=== PATIENT | male | born 1955 | race African-American/Black ===

== ENCOUNTER 2019-01-07 15:52 | Inpatient (IN) ==
[2019-01-07] MEDS ORDERED: SODIUM CHLORIDE 0.9% 1,000 ML IV STA ×2 (16:46→17:52)
[2019-01-07 17:04] LABS: Basophils % 0.3 % (0.0-0.8); Eosinophils % 0.1 % (0.00-10.9); Hematocrit 37.9 VOL% (42.0-52.0); Hemoglobin 12.4 GM/DL (14.0-18.0); Immature Granulocytes % 0.6 %; Immature Granulocytes Absolute 0.08 #; Mean Corpuscular HGB Conc 32.7 GM/DL (32-36); Mean Corpuscular Volume 87.1 FL (87-102); Mean Platelet Volume 10.2 FL (9.6-12.0); Monocytes % 7.5 % (1.7-12.7); Neutrophils % 84.5 % (38.7-73.9); Platelet Count 250 T/CUMM (130-400); Red Blood Count 4.35 MC/CUMM (3.8-5.5); Red Cell Distribution Width 13.6 % (9.3-17.3); White Blood Count 13.7 T/CUMM (4-12)
[2019-01-07 17:14] LABS: INR 0.9; Partial Thromboplastin Time 23.9 SECS (0-40)
[2019-01-07 17:33] LABS: Prolactin 5.1 NG/ML
[2019-01-07 17:34] LABS: Alanine Aminotransferase 33 U/L (16-61); Albumin 2.6 G/DL (3.4-5.0); Alkaline Phosphatase 63 U/L (45-117); Aspartate Amino Transferase 71 U/L (0-37); Bilirubin,Total < 0.39 MG/DL (0.2-1.0); Blood Urea Nitrogen 22 MG/DL (7-18); Calcium 8.8 MG/DL (8.5-10.1); Free T4 (Free Thyroxine) 1.17 NG/DL (0.76-1.46); Glucose 124 MG/DL (74-106); Osmolality,Calculated 282.4 MOS/KG (273-304); Thyroid Stimulating Hormone 0.973 uIU/ml (0.358-3.74); Total Protein 7.1 G/DL (6.4-8.3)
[2019-01-07] MEDS ORDERED: AZITHROMYCIN INJ 500 MG in SODIUM CHLORIDE 0.9% 250 ML IV STA (17:52)
[2019-01-07] MEDS ORDERED: cefTRIAXone 1,000 MG in SODIUM CHLORIDE 0.9% 100 ML IV STA (17:52)
[2019-01-07] MEDS ORDERED: ALBUTEROL/IPRATROPIUM 3 ML NEB RESP TX STA (17:54)
[2019-01-07] MEDS ORDERED: methylPREDNISolone SOD SUC 125 MG/2 ML VIAL IV STA (17:54)
[2019-01-07 18:21] LABS: Apearance,Urine Slightly Hazy (Clear); Bilirubin,Urine Negative (Negative); Blood, Urine Large mg/dL (Negative); Glucose,Urine (UA) 50 mg/dL (Negative); Hyaline Casts,Urine 10 /LPF (0-3); Ketones,Urine Negative (Negative); Mucus,Urine Occasional /LPF (Occasional); Nitrite,Urine Negative (Negative); Protein,Urine >=500 MG/DL; RBC,Urine 312 /HPF (0-4); Squamous Epithelial Cell,Urine Occasional /HPF (0-10); Urine Color Yellow (Yellow); Urine Specific Gravity 1.012 (1.001-1.035); Urine Urobilinogen < 2.0 EU/DL (0.2-1.0); WBC,Urine 7 /HPF (0-6)
[2019-01-07 18:31] LABS: Barbiturates Screen,Urine Negative (Negative); Benzodiazepines Screen,Urine Negative (Negative); Cannabinoid Screen,Urine Negative (Negative); Opiate Screen,Urine Positive (Negative); Phencyclidine Screen,Urine Negative (Negative)
[2019-01-07] MEDS ORDERED: ACETAMINOPHEN 325 MG TABLET PO PRN (19:44)
[2019-01-07] MEDS ORDERED: BISACODYL 5 MG TABLET PO PRN (19:44)
[2019-01-07] MEDS ORDERED: NICOTINE 21 MG/24 HR PATCH TRANSDERM PRN (19:44)
[2019-01-07] MEDS ORDERED: DEXTROSE 50% 25 GM/50 ML VIAL IV PRN (19:44)
[2019-01-07] MEDS ORDERED: GLUCAGON 1 MG VIAL IM PRN (19:44)
[2019-01-07] MEDS ORDERED: MORPHINE 4 MG/1 ML VIAL IV PRN (19:44)
[2019-01-07] MEDS ORDERED: diphenhydrAMINE CAP 25 MG CAPSULE PO PRN (19:44)
[2019-01-07] MEDS ORDERED: guaiFENesin/DM ER 600-30 MG TABLET PO PRN (19:44)
[2019-01-07] MEDS ORDERED: PROMETHAZINE 25 MG/1 ML VIAL IM PRN (19:44)
[2019-01-07] MEDS ORDERED: ONDANSETRON 4 MG/2 ML VIAL IV PRN (19:44)
[2019-01-07] MEDS: SODIUM CHLORIDE 0.9% 1,000 ML IV SCH (21:25)
[2019-01-07] MEDS: INSULIN REGULAR 100 UNIT/ML SUBCUT SCH (21:25)
[2019-01-07] MEDS ORDERED: FUROSEMIDE 20 MG TABLET PO SCH (23:58)
[2019-01-08] MEDS: PREGABALIN 75 MG CAPSULE PO SCH ×2 (00:21→09:26)
[2019-01-08] MEDS: GABAPENTIN 600 MG TABLET PO SCH ×3 (00:21→22:25)
[2019-01-08 05:24] LABS: Basophils % 0.1 % (0.0-0.8); Hematocrit 38.2 VOL% (42.0-52.0); Hemoglobin 12.5 GM/DL (14.0-18.0); Immature Granulocytes % 0.5 %; Immature Granulocytes Absolute 0.07 #; Lymphocytes # 1.1 10*3/uL (1.4-4.0); Lymphocytes % 7.9 % (21.2-54.2); Mean Corpuscular HGB Conc 32.7 GM/DL (32-36); Mean Corpuscular Volume 86.6 FL (87-102); Mean Platelet Volume 10.8 FL (9.6-12.0); Monocytes % 0.7 % (1.7-12.7); Neutrophils % 90.8 % (38.7-73.9); Platelet Count 240 T/CUMM (130-400); Red Blood Count 4.41 MC/CUMM (3.8-5.5); Red Cell Distribution Width 13.7 % (9.3-17.3); White Blood Count 14.2 T/CUMM (4-12)
[2019-01-08 05:49] LABS: Alanine Aminotransferase 48 U/L (16-61); Albumin 2.4 G/DL (3.4-5.0); Alkaline Phosphatase 67 U/L (45-117); Aspartate Amino Transferase 146 U/L (0-37); Bilirubin,Total < 0.39 MG/DL (0.2-1.0); Blood Urea Nitrogen 23 MG/DL (7-18); Calcium 8.6 MG/DL (8.5-10.1); Glucose 453 MG/DL (74-106); Osmolality,Calculated 300.5 MOS/KG (273-304); Total Protein 6.9 G/DL (6.4-8.3)
[2019-01-08 06:09] LABS: Lymphocytes 6 % (20-55); Segmented Neutrophils 94 % (50-85); Total Cells Counted 100
[2019-01-08 06:11] LABS: Hypochromasia 1+; Platelet Estimate Normal
[2019-01-08] MEDS ORDERED: SODIUM CHLORIDE 0.9% 500 ML IV ONE (07:38)
[2019-01-08] MEDS ORDERED: INSULIN REGULAR 100 UNIT/ML IV ONE ×2 (07:38→12:16)
[2019-01-08 08:02] LABS: Risk Ratio 2.34; VLDL CHOLESTEROL 8.6 MG/DL
[2019-01-08] MEDS ORDERED: cefTRIAXone 1,000 MG in SYRINGE 1 EACH IV SCH (09:00)
[2019-01-08] MEDS: INSULIN REGULAR 100 UNIT/ML SUBCUT SCH ×5 (09:26→20:14)
[2019-01-08] MEDS: amLODIPine 10 MG TABLET PO SCH (09:42)
[2019-01-08] MEDS: PANTOPRAZOLE 40 MG TABLET PO SCH (09:42)
[2019-01-08] MEDS: HEPARIN 5,000 UNIT/1 ML VIAL SUBCUT SCH ×2 (09:43→17:58)
[2019-01-08] MEDS: SODIUM CHLORIDE 0.9% 1,000 ML IV SCH ×2 (09:44→17:58)
[2019-01-08] MEDS: PIPERACILLIN/TAZOBACTAM 3,375 MG in SODIUM CHLORIDE 0.9% 100 ML IV SCH ×2 (09:44→17:59)
[2019-01-08 10:54] LABS: CKMB % 0.6 %
[2019-01-08] MEDS ORDERED: POTASSIUM CHLORIDE RIDER 10 MEQ in PREMIX 1 EACH IV PRN (12:17)
[2019-01-08 13:08] LABS: Protein/Creatinine Ratio,Urine 5.9 RATIO
[2019-01-08] MEDS: ALBUTEROL/IPRATROPIUM 3 ML NEB RESP TX SCH ×2 (15:34→18:48)
[2019-01-08] MEDS: INSULIN ASPART PROTAMINE/ASPART 70/30 100 UNIT/ML SUBCUT SCH (17:58)
[2019-01-08] MEDS ORDERED: AZITHROMYCIN INJ 500 MG in SODIUM CHLORIDE 0.9% 250 ML IV SCH (18:00)
[2019-01-09] MEDS: PIPERACILLIN/TAZOBACTAM 3,375 MG in SODIUM CHLORIDE 0.9% 100 ML IV SCH ×3 (00:44→16:39)
[2019-01-09] MEDS: INSULIN REGULAR 100 UNIT/ML SUBCUT SCH ×4 (00:44→17:57)
[2019-01-09] MEDS: HEPARIN 5,000 UNIT/1 ML VIAL SUBCUT SCH ×3 (01:40→16:39)
[2019-01-09] MEDS: SODIUM CHLORIDE 0.9% 1,000 ML IV SCH ×5 (01:41→22:27)
[2019-01-09] MEDS: LEVALBUTEROL 0.63 MG/3 ML NEB RESP TX SCH ×4 (02:00→18:30)
[2019-01-09 05:34] LABS: Basophils % 0.3 % (0.0-0.8); Eosinophils # 0.1 10*3/uL (0.0-0.87); Eosinophils % 0.5 % (0.00-10.9); Hematocrit 34.6 VOL% (42.0-52.0); Hemoglobin 11.4 GM/DL (14.0-18.0); Immature Granulocytes % 0.3 %; Immature Granulocytes Absolute 0.04 #; Lymphocytes % 25.8 % (21.2-54.2); Mean Corpuscular HGB Conc 32.9 GM/DL (32-36); Mean Corpuscular Volume 86.5 FL (87-102); Mean Platelet Volume 10.2 FL (9.6-12.0); Monocytes % 5.1 % (1.7-12.7); Platelet Count 213 T/CUMM (130-400); Red Cell Distribution Width 13.8 % (9.3-17.3); White Blood Count 11.7 T/CUMM (4-12)
[2019-01-09 06:12] LABS: Bilirubin,Total 0.4 MG/DL (0.2-1.0); CKMB % 0.4 %; Calcium 8.1 MG/DL (8.5-10.1); Osmolality,Calculated 288.7 MOS/KG (273-304); Total Protein 6.1 G/DL (6.4-8.3)
[2019-01-09] MEDS: amLODIPine 10 MG TABLET PO SCH (08:50)
[2019-01-09] MEDS: GABAPENTIN 600 MG TABLET PO SCH ×2 (08:50→22:29)
[2019-01-09] MEDS: PANTOPRAZOLE 40 MG TABLET PO SCH (08:51)
[2019-01-09] MEDS: POTASSIUM CHLORIDE 20 MEQ TABLET PO PRN ×4 (08:51→22:29)
[2019-01-09] MEDS: INSULIN ASPART PROTAMINE/ASPART 70/30 100 UNIT/ML SUBCUT SCH ×2 (08:52→16:39)
[2019-01-09 10:08] LABS: Random Urine Protein (Bench) 164 MG/DL (<11.9)
[2019-01-09] MEDS: LOSARTAN/HCTZ 50-12.5 MG TABLET PO SCH (16:38)
[2019-01-09] MEDS: CARBIDOPA/LEVODOPA 25-100 MG TABLET PO SCH (22:29)
[2019-01-10] MEDS: LEVALBUTEROL 0.63 MG/3 ML NEB RESP TX SCH ×2 (00:20→07:46)
[2019-01-10] MEDS: INSULIN REGULAR 100 UNIT/ML SUBCUT SCH ×3 (01:09→12:33)
[2019-01-10] MEDS: PIPERACILLIN/TAZOBACTAM 3,375 MG in SODIUM CHLORIDE 0.9% 100 ML IV SCH ×2 (01:10→09:05)
[2019-01-10] MEDS: HEPARIN 5,000 UNIT/1 ML VIAL SUBCUT SCH ×2 (01:11→09:06)
[2019-01-10] MEDS ORDERED: hydrALAZINE 20 MG/1 ML VIAL IV PRN (01:17)
[2019-01-10 05:27] LABS: Basophils % 0.3 % (0.0-0.8); Eosinophils # 0.2 10*3/uL (0.0-0.87); Eosinophils % 1.7 % (0.00-10.9); Hematocrit 35.3 VOL% (42.0-52.0); Hemoglobin 11.7 GM/DL (14.0-18.0); Immature Granulocytes % 0.2 %; Immature Granulocytes Absolute 0.02 #; Lymphocytes # 2.8 10*3/uL (1.4-4.0); Lymphocytes % 32.3 % (21.2-54.2); Mean Corpuscular HGB Conc 33.1 GM/DL (32-36); Mean Corpuscular Volume 86.5 FL (87-102); Mean Platelet Volume 11.1 FL (9.6-12.0); Monocytes % 4.9 % (1.7-12.7); Neutrophils % 60.6 % (38.7-73.9); Platelet Count 208 T/CUMM (130-400); Red Blood Count 4.08 MC/CUMM (3.8-5.5); Red Cell Distribution Width 13.8 % (9.3-17.3); White Blood Count 8.7 T/CUMM (4-12)
[2019-01-10 05:43] LABS: Calcium 8.3 MG/DL (8.5-10.1); Osmolality,Calculated 288.1 MOS/KG (273-304)
[2019-01-10] MEDS: SODIUM CHLORIDE 0.9% 1,000 ML IV SCH ×3 (06:22→15:43)
[2019-01-10] MEDS: CARBIDOPA/LEVODOPA 25-100 MG TABLET PO SCH (09:00)
[2019-01-10] MEDS: PANTOPRAZOLE 40 MG TABLET PO SCH (09:00)
[2019-01-10] MEDS: LOSARTAN/HCTZ 50-12.5 MG TABLET PO SCH (09:00)
[2019-01-10] MEDS: GABAPENTIN 600 MG TABLET PO SCH (09:01)
[2019-01-10] MEDS: amLODIPine 10 MG TABLET PO SCH (09:01)
[2019-01-10] MEDS: INSULIN ASPART PROTAMINE/ASPART 70/30 100 UNIT/ML SUBCUT SCH (09:04)
[2019-01-10] MEDS ORDERED: CARVEDILOL 25 MG TABLET PO SCH (11:32)
[2019-01-10 12:51] VITALS: BP 151/89
== END 2019-01-10 16:00 | disposition home or self-care (01) | DRG 137 ==
LOC: EDUNIT# → EDBD → N.ED 15:52 → N.EDINP 19:44 → N.5E 20:05
PROVIDERS: ADMIT Internal Medicine; ATTEND Internal Medicine

== ENCOUNTER 2019-07-18 12:55 | Inpatient (IN) ==
[2019-07-18] MEDS ORDERED: SODIUM CHLORIDE 0.9% 500 ML IV STA (13:26)
[2019-07-18 14:02] LABS: Basophils % 0.4 % (0.0-0.8); Hematocrit 36.2 VOL% (42.0-52.0); Hemoglobin 12.1 GM/DL (14.0-18.0); Immature Granulocytes % 0.3 %; Immature Granulocytes Absolute 0.02 #; Lymphocytes # 1.4 10*3/uL (1.4-4.0); Lymphocytes % 19.1 % (21.2-54.2); Mean Corpuscular HGB Conc 33.4 GM/DL (32-36); Mean Corpuscular Volume 85.8 FL (87-102); Mean Platelet Volume 9.9 FL (9.6-12.0); Neutrophils % 72.2 % (38.7-73.9); Platelet Count 202 T/CUMM (130-400); Red Blood Count 4.22 MC/CUMM (3.8-5.5); Red Cell Distribution Width 13.3 % (9.3-17.3); White Blood Count 7.2 T/CUMM (4-12)
[2019-07-18 14:16] LABS: Apearance,Urine CLEAR (Clear); Bacteria,Urine Occasional /HPF (Few); Bilirubin,Urine Negative (Negative); Blood, Urine Moderate mg/dL (Negative); Glucose,Urine (UA) 50 mg/dL (Negative); Hyaline Casts,Urine 1 /LPF (0-3); Ketones,Urine Negative (Negative); Mucus,Urine Occasional /LPF (Occasional); Nitrite,Urine Negative (Negative); Protein,Urine 100 MG/DL; RBC,Urine 8 /HPF (0-4); Squamous Epithelial Cell,Urine Occasional /HPF (0-10); Urine Color Yellow (Yellow); Urine Specific Gravity 1.016 (1.001-1.035); Urine Urobilinogen < 2.0 EU/DL (0.2-1.0); WBC,Urine 29 /HPF (0-6)
[2019-07-18 14:23] LABS: Alanine Aminotransferase 25 U/L (16-61); Albumin 2.3 G/DL (3.4-5.0); Alkaline Phosphatase 55 U/L (45-117); Aspartate Amino Transferase 34 U/L (0-37); Bilirubin,Total < 0.39 MG/DL (0.2-1.0); Blood Urea Nitrogen 20 MG/DL (7-18); Calcium 8.3 MG/DL (8.5-10.1); Estimated Glom Filtration Rate 58 ML/MIN; Glucose 108 MG/DL (74-106); Osmolality,Calculated 276.8 MOS/KG (273-304); Total Protein 6.7 G/DL (6.4-8.3)
[2019-07-18] MEDS ORDERED: cloNIDine 0.1 MG TABLET ONE (14:24)
[2019-07-18] MEDS ORDERED: cloNIDine 0.1 MG TABLET PO STA (14:26)
[2019-07-18] MEDS ORDERED: cefTRIAXone 1,000 MG in SODIUM CHLORIDE 0.9% 100 ML IV STA (15:04)
[2019-07-18] MEDS ORDERED: cefTRIAXone 1,000 MG in SYRINGE 1 EACH IV STA (15:07)
[2019-07-18] MEDS ORDERED: SODIUM CHLORIDE 0.9% 100 ML IV ONE (15:17)
[2019-07-18] MEDS ORDERED: ONDANSETRON 4 MG/2 ML VIAL IV PRN (16:14)
[2019-07-18] MEDS ORDERED: ACETAMINOPHEN 325 MG TABLET PO PRN (16:14)
[2019-07-18] MEDS ORDERED: diphenhydrAMINE CAP 25 MG CAPSULE PO PRN (16:14)
[2019-07-18] MEDS ORDERED: guaiFENesin/DM ER 600-30 MG TABLET PO PRN (16:14)
[2019-07-18] MEDS ORDERED: LACTULOSE 20 GM/30 ML UDCUP PO PRN (16:14)
[2019-07-18] MEDS ORDERED: GLUCAGON 1 MG VIAL IM PRN (16:14)
[2019-07-18] MEDS ORDERED: traZODone 50 MG TABLET PO PRN (16:14)
[2019-07-18] MEDS ORDERED: ZALEPLON 5 MG CAPSULE PO PRN (16:14)
[2019-07-18] MEDS ORDERED: DEXTROSE 50% 25 GM/50 ML VIAL IV PRN (16:14)
[2019-07-18] MEDS ORDERED: POTASSIUM CHLORIDE RIDER 10 MEQ in PREMIX 1 EACH IV PRN (16:17)
[2019-07-18] MEDS ORDERED: MAGNESIUM SULF RIDER 2 GM in PREMIX 1 EACH IV PRN (16:17)
[2019-07-18] MEDS ORDERED: MAGNESIUM SULF RIDER 4 GM in PREMIX 1 EACH IV PRN (16:17)
[2019-07-18] MEDS ORDERED: hydrALAZINE 20 MG/1 ML VIAL IV STA (16:24)
[2019-07-18] MEDS ORDERED: hydrALAZINE 20 MG/1 ML VIAL IV PRN (16:25)
[2019-07-18] MEDS: INSULIN REGULAR 100 UNIT/ML SUBCUT SCH ×2 (17:40→21:28)
[2019-07-18] MEDS: HEPARIN 5,000 UNIT/1 ML VIAL SUBCUT SCH (17:42)
[2019-07-18] MEDS: PIPERACILLIN/TAZOBACTAM 3,375 MG in SODIUM CHLORIDE 0.9% 100 ML IV SCH (17:43)
[2019-07-18] MEDS: SODIUM CHLORIDE 0.9% 1,000 ML IV SCH (17:43)
[2019-07-18] MEDS ORDERED: INSULIN ASPART PROTAMINE/ASPART 70/30 100 UNIT/ML SUBCUT SCH (21:00)
[2019-07-18] MEDS: GABAPENTIN 600 MG TABLET PO SCH (21:06)
[2019-07-18] MEDS: BACLOFEN 10 MG TABLET PO SCH (21:06)
[2019-07-19] MEDS: HEPARIN 5,000 UNIT/1 ML VIAL SUBCUT SCH ×3 (00:51→17:13)
[2019-07-19] MEDS: PIPERACILLIN/TAZOBACTAM 3,375 MG in SODIUM CHLORIDE 0.9% 100 ML IV SCH ×2 (00:51→08:38)
[2019-07-19 06:00] LABS: Basophils % 0.4 % (0.0-0.8); Eosinophils % 0.3 % (0.00-10.9); Hematocrit 32.7 VOL% (42.0-52.0); Immature Granulocytes % 0.1 %; Immature Granulocytes Absolute 0.01 #; Lymphocytes # 2.5 10*3/uL (1.4-4.0); Mean Corpuscular HGB Conc 33.6 GM/DL (32-36); Mean Corpuscular Volume 85.6 FL (87-102); Mean Platelet Volume 10.4 FL (9.6-12.0); Monocytes % 9.6 % (1.7-12.7); Neutrophils % 52.6 % (38.7-73.9); Platelet Count 197 T/CUMM (130-400); Red Blood Count 3.82 MC/CUMM (3.8-5.5); Red Cell Distribution Width 13.1 % (9.3-17.3); White Blood Count 6.8 T/CUMM (4-12)
[2019-07-19 06:24] LABS: Albumin 1.8 G/DL (3.4-5.0); Bilirubin,Total 1.1 MG/DL (0.2-1.0); Calcium 8.2 MG/DL (8.5-10.1); Osmolality,Calculated 286.4 MOS/KG (273-304); Risk Ratio 2.96; Total Protein 5.9 G/DL (6.4-8.3)
[2019-07-19 06:33] LABS: Hypochromasia 1+; Microcytosis Slight; Ovalocytes Slight
[2019-07-19 06:34] LABS: Platelet Estimate Adequate
[2019-07-19 07:43] LABS: Hepatitis B Core IgM Quant 0.07 Index; Hepatitis B Surface Ag Quant < 0.10 Index; Hepatitis B Surface Ag Result Negative (Negative); Hepatitis C Virus Ab Quant > 11.00 Index; Hepatitis C Virus Ab Result Positive (Negative)
[2019-07-19] MEDS: INSULIN REGULAR 100 UNIT/ML SUBCUT SCH ×4 (08:36→20:35)
[2019-07-19] MEDS: GABAPENTIN 600 MG TABLET PO SCH ×2 (08:37→20:26)
[2019-07-19] MEDS: BACLOFEN 10 MG TABLET PO SCH ×2 (08:37→20:26)
[2019-07-19] MEDS: BISACODYL 5 MG TABLET PO SCH (08:37)
[2019-07-19] MEDS: INSULIN ASPART PROTAMINE/ASPART 70/30 100 UNIT/ML SUBCUT SCH ×2 (08:48→17:12)
[2019-07-19] MEDS ORDERED: POTASSIUM CHLORIDE INJ 50 MEQ in SODIUM CHLORIDE 0.9% 500 ML IV ONE (10:30)
[2019-07-19 14:07] LABS: HIV Antigen/Antibody Result Nonreactive (Nonreactive)
[2019-07-19] MEDS ORDERED: BICILLIN CR 1,200,000 UNIT/2 ML SYRINGE IM ONE (16:00)
[2019-07-19] MEDS: CARBIDOPA/LEVODOPA 25-100 MG TABLET PO SCH (20:26)
[2019-07-19] MEDS ORDERED: PENICILLIN VK 500 MG TABLET PO SCH (21:00)
[2019-07-19] MEDS: SODIUM CHLORIDE 0.9% 1,000 ML IV SCH (22:42)
[2019-07-20] MEDS: HEPARIN 5,000 UNIT/1 ML VIAL SUBCUT SCH ×2 (00:50→09:19)
[2019-07-20 04:40] LABS: Basophils % 0.5 % (0.0-0.8); Eosinophils % 0.5 % (0.00-10.9); Hematocrit 33.5 VOL% (42.0-52.0); Hemoglobin 11.2 GM/DL (14.0-18.0); Lymphocytes # 2.8 10*3/uL (1.4-4.0); Mean Corpuscular HGB Conc 33.4 GM/DL (32-36); Mean Corpuscular Volume 85.5 FL (87-102); Mean Platelet Volume 10.2 FL (9.6-12.0); Monocytes % 10.3 % (1.7-12.7); Neutrophils % 43.7 % (38.7-73.9); Platelet Count 226 T/CUMM (130-400); Red Blood Count 3.92 MC/CUMM (3.8-5.5); Red Cell Distribution Width 13.2 % (9.3-17.3); White Blood Count 6.2 T/CUMM (4-12)
[2019-07-20 05:06] LABS: Alanine Aminotransferase < 9 U/L (16-61); Albumin 1.8 G/DL (3.4-5.0); Alkaline Phosphatase 50 U/L (45-117); Aspartate Amino Transferase 22 U/L (0-37); Bilirubin,Total < 0.39 MG/DL (0.2-1.0); Blood Urea Nitrogen 19 MG/DL (7-18); Estimated Glom Filtration Rate 72 ML/MIN; Glucose 102 MG/DL (74-106); Osmolality,Calculated 280.4 MOS/KG (273-304); Total Protein 6.1 G/DL (6.4-8.3)
[2019-07-20] MEDS: BACLOFEN 10 MG TABLET PO SCH (09:19)
[2019-07-20] MEDS: BISACODYL 5 MG TABLET PO SCH (09:20)
[2019-07-20] MEDS: CARBIDOPA/LEVODOPA 25-100 MG TABLET PO SCH (09:20)
[2019-07-20] MEDS: GABAPENTIN 600 MG TABLET PO SCH (09:21)
[2019-07-20] MEDS: INSULIN ASPART PROTAMINE/ASPART 70/30 100 UNIT/ML SUBCUT SCH (09:21)
[2019-07-20] MEDS: INSULIN REGULAR 100 UNIT/ML SUBCUT SCH ×2 (09:22→14:16)
[2019-07-20] MEDS ORDERED: PHENOL 1.4% THROAT SPRAY 177 ML BOTTLE PO PRN (10:57)
[2019-07-20 12:35] VITALS: BP 183/76
[2019-07-25 14:31] LABS: Epstein-Barr Virus Result Negative (Negative); Epstein-Barr Virus Source NASOPHARYNGEAL
== END 2019-07-20 13:30 | disposition home or self-care (01) | DRG 463 ==
LOC: EDBD → EDUNIT# → N.ED 12:55 → N.EDINP 16:14 → N.2E 17:20
PROVIDERS: ADMIT Internal Medicine; ATTEND Internal Medicine

== ENCOUNTER 2020-02-24 21:07 | Inpatient (IN) ==
[2020-02-24] MEDS ORDERED: hydrALAZINE 20 MG/1 ML VIAL IV STA (22:08)
[2020-02-24 22:23] LABS: Apearance,Urine CLEAR (Clear); Bacteria,Urine Occasional /HPF (Few); Bilirubin,Urine Negative (Negative); Blood, Urine Moderate mg/dL (Negative); Glucose,Urine (UA) >=500 mg/dL (Negative); Hyaline Casts,Urine 1 /LPF (0-3); Ketones,Urine Negative (Negative); Nitrite,Urine Negative (Negative); Protein,Urine 100 MG/DL; RBC,Urine 39 /HPF (0-4); Urine Color Yellow (Yellow); Urine Specific Gravity 1.009 (1.001-1.035); Urine Urobilinogen < 2.0 EU/DL (0.2-1.0); WBC,Urine 5 /HPF (0-6)
[2020-02-24 22:41] LABS: Basophils # 0.1 10*3/uL (0.0-0.2); Basophils % 0.3 % (0.0-0.8); Eosinophils % 0.3 % (0.00-10.9); Hematocrit 32.1 VOL% (42.0-52.0); Hemoglobin 10.7 GM/DL (14.0-18.0); Immature Granulocytes % 0.6 %; Immature Granulocytes Absolute 0.09 #; Lymphocytes # 2.2 10*3/uL (1.4-4.0); Lymphocytes % 15.2 % (21.2-54.2); Mean Corpuscular HGB Conc 33.3 GM/DL (32-36); Mean Corpuscular Volume 86.1 FL (87-102); Mean Platelet Volume 9.7 FL (9.6-12.0); Neutrophils % 77.6 % (38.7-73.9); Platelet Count 287 T/CUMM (130-400); Red Blood Count 3.73 MC/CUMM (3.8-5.5); Red Cell Distribution Width 14.2 % (9.3-17.3); White Blood Count 14.5 T/CUMM (4-12)
[2020-02-24 23:06] LABS: Albumin 2.6 G/DL (3.4-5.0); Bilirubin,Total 0.9 MG/DL (0.2-1.0); Calcium 8.8 MG/DL (8.5-10.1); Total Protein 7.4 G/DL (6.4-8.3)
[2020-02-24] MEDS ORDERED: LABETALOL 20 MG/4 ML SYRINGE IV STA (23:37)
[2020-02-24] MEDS ORDERED: LABETALOL 20 MG/4 ML SYRINGE IV ONE (23:38)
[2020-02-25] MEDS ORDERED: DEXTROSE 50% 25 GM/50 ML VIAL IV PRN (01:19)
[2020-02-25] MEDS ORDERED: ACETAMINOPHEN 325 MG TABLET PO PRN (01:19)
[2020-02-25] MEDS ORDERED: hydrALAZINE 20 MG/1 ML VIAL IV PRN (01:19)
[2020-02-25] MEDS ORDERED: GLUCAGON 1 MG VIAL IM PRN (01:19)
[2020-02-25] MEDS ORDERED: ONDANSETRON 4 MG/2 ML VIAL IV PRN (01:19)
[2020-02-25] MEDS ORDERED: ACETAMINOPHEN 500 MG TABLET PO STA (01:30)
[2020-02-25 01:39] LABS: ABG Base Excess -0.4 MMOL/L (-2.5-2.5); ABG HCO3 23.5 MMOL/L (20-26); ABG Oxygen Saturation 80.8 % (95-100); ABG PCO2 35.6 MM HG (35-48); ABG PH 7.437 (7.35-7.45); ABG PO2 44.4 MM HG (80-95); ABG TCO2 24.6 MMOL/L (23-27); Allen Test Positive; Pt O2 Delivery Device Room Air
[2020-02-25 02:00] LABS: Barbiturates Screen,Urine Negative (Negative); Benzodiazepines Screen,Urine Negative (Negative); Cannabinoid Screen,Urine Negative (Negative); Opiate Screen,Urine Positive (Negative); Phencyclidine Screen,Urine Negative (Negative)
[2020-02-25] MEDS: SODIUM CHLORIDE 0.9% 1,000 ML IV SCH ×2 (02:30→09:14)
[2020-02-25 03:09] LABS: Basophils # 0.1 10*3/uL (0.0-0.2); Basophils % 0.4 % (0.0-0.8); Hematocrit 30.1 VOL% (42.0-52.0); Hemoglobin 10.1 GM/DL (14.0-18.0); Immature Granulocytes % 0.4 %; Immature Granulocytes Absolute 0.05 #; Lymphocytes # 2.3 10*3/uL (1.4-4.0); Lymphocytes % 18.6 % (21.2-54.2); Mean Corpuscular HGB Conc 33.6 GM/DL (32-36); Mean Platelet Volume 9.9 FL (9.6-12.0); Monocytes % 7.1 % (1.7-12.7); Neutrophils % 73.5 % (38.7-73.9); Platelet Count 274 T/CUMM (130-400); Red Cell Distribution Width 14.2 % (9.3-17.3); White Blood Count 12.6 T/CUMM (4-12)
[2020-02-25 03:25] LABS: Calcium 8.7 MG/DL (8.5-10.1); Osmolality,Calculated 292.8 MOS/KG (273-304)
[2020-02-25 03:35] LABS: Risk Ratio 2.61; Thyroid Stimulating Hormone 0.386 uIU/ml (0.358-3.74); VLDL CHOLESTEROL 15.8 MG/DL
[2020-02-25] MEDS ORDERED: cefTRIAXone 1,000 MG in SYRINGE 1 EACH IV SCH (05:00)
[2020-02-25] MEDS ORDERED: VANCOMYCIN INJ 2,500 MG in SODIUM CHLORIDE 0.9% 500 ML IV ONE (08:00)
[2020-02-25] MEDS ORDERED: cloNIDine 0.3 MG/24 HR PATCH TRANSDERM SCH (09:00)
[2020-02-25] MEDS: CARBIDOPA/LEVODOPA 25-100 MG TABLET PO SCH ×3 (09:05→21:01)
[2020-02-25] MEDS: PREGABALIN 75 MG CAPSULE PO SCH ×2 (09:05→21:07)
[2020-02-25] MEDS: ENOXAPARIN 40 MG/0.4 ML SYRINGE SUBCUT SCH ×2 (09:06→09:14)
[2020-02-25] MEDS: INSULIN ASPART PROTAMINE/ASPART 70/30 100 UNIT/ML SUBCUT SCH ×2 (09:07→16:00)
[2020-02-25] MEDS: INSULIN LISPRO 100 UNIT/ML SUBCUT SCH ×4 (09:08→20:53)
[2020-02-25] MEDS: PIPERACILLIN/TAZOBACTAM 3,375 MG in SODIUM CHLORIDE 0.9% 100 ML IV SCH (16:36)
[2020-02-25] MEDS ORDERED: INSULIN ASPART PROTAMINE/ASPART 70/30 100 UNIT/ML SUBCUT SCH ×2 (17:00)
[2020-02-25] MEDS ORDERED: MAGNESIUM SULF RIDER 4 GM in PREMIX 1 EACH IV PRN (17:16)
[2020-02-25] MEDS ORDERED: MAGNESIUM SULF RIDER 2 GM in PREMIX 1 EACH IV PRN (17:16)
[2020-02-25] MEDS: RIVAROXABAN 10 MG TABLET PO SCH (21:01)
[2020-02-25] MEDS: hydrALAZINE 25 MG TABLET PO SCH (21:01)
[2020-02-26] MEDS: PIPERACILLIN/TAZOBACTAM 3,375 MG in SODIUM CHLORIDE 0.9% 100 ML IV SCH ×3 (01:14→16:06)
[2020-02-26 05:45] LABS: Basophils % 0.2 % (0.0-0.8); Eosinophils % 0.1 % (0.00-10.9); Hematocrit 31.8 VOL% (42.0-52.0); Hemoglobin 10.7 GM/DL (14.0-18.0); Immature Granulocytes % 0.5 %; Immature Granulocytes Absolute 0.07 #; Lymphocytes # 1.9 10*3/uL (1.4-4.0); Lymphocytes % 13.4 % (21.2-54.2); Mean Corpuscular HGB Conc 33.6 GM/DL (32-36); Mean Corpuscular Volume 85.5 FL (87-102); Mean Platelet Volume 10.6 FL (9.6-12.0); Monocytes % 7.8 % (1.7-12.7); Platelet Count 292 T/CUMM (130-400); Red Blood Count 3.72 MC/CUMM (3.8-5.5); White Blood Count 14.3 T/CUMM (4-12)
[2020-02-26 06:01] LABS: Osmolality,Calculated 283.5 MOS/KG (273-304)
[2020-02-26] MEDS: INSULIN LISPRO 100 UNIT/ML SUBCUT SCH ×4 (07:45→21:25)
[2020-02-26] MEDS: VANCOMYCIN INJ 2,000 MG in SODIUM CHLORIDE 0.9% 500 ML IV SCH (09:01)
[2020-02-26] MEDS: hydrALAZINE 25 MG TABLET PO SCH (09:11)
[2020-02-26] MEDS: CARBIDOPA/LEVODOPA 25-100 MG TABLET PO SCH ×3 (09:12→21:22)
[2020-02-26] MEDS: CHOLECALCIFEROL 1,000 UNIT TABLET PO SCH (09:12)
[2020-02-26] MEDS: PREGABALIN 75 MG CAPSULE PO SCH ×2 (09:12→21:25)
[2020-02-26] MEDS ORDERED: ERGOCALCIFEROL 50,000 UNIT CAPSULE PO ONE (09:41)
[2020-02-26] MEDS ORDERED: INSULIN GLARGINE 100 UNIT/ML SUBCUT SCH (21:00)
[2020-02-26] MEDS: RIVAROXABAN 10 MG TABLET PO SCH (21:23)
[2020-02-27] MEDS: PIPERACILLIN/TAZOBACTAM 3,375 MG in SODIUM CHLORIDE 0.9% 100 ML IV SCH ×3 (00:38→16:04)
[2020-02-27] MEDS ORDERED: ZALEPLON 5 MG CAPSULE PO PRN (01:07)
[2020-02-27 07:48] LABS: Basophils # 0.1 10*3/uL (0.0-0.2); Basophils % 0.4 % (0.0-0.8); Eosinophils # 0.1 10*3/uL (0.0-0.87); Eosinophils % 0.6 % (0.00-10.9); Hematocrit 31.5 VOL% (42.0-52.0); Hemoglobin 10.5 GM/DL (14.0-18.0); Immature Granulocytes % 0.4 %; Immature Granulocytes Absolute 0.05 #; Lymphocytes # 2.3 10*3/uL (1.4-4.0); Lymphocytes % 18.1 % (21.2-54.2); Mean Corpuscular HGB Conc 33.3 GM/DL (32-36); Mean Corpuscular Volume 85.1 FL (87-102); Mean Platelet Volume 9.6 FL (9.6-12.0); Monocytes % 6.6 % (1.7-12.7); Neutrophils % 73.9 % (38.7-73.9); Platelet Count 324 T/CUMM (130-400); Red Cell Distribution Width 13.9 % (9.3-17.3); White Blood Count 12.6 T/CUMM (4-12)
[2020-02-27 08:19] LABS: Calcium 8.9 MG/DL (8.5-10.1); Osmolality,Calculated 287.5 MOS/KG (273-304)
[2020-02-27] MEDS: CHOLECALCIFEROL 1,000 UNIT TABLET PO SCH (08:36)
[2020-02-27] MEDS: INSULIN LISPRO 100 UNIT/ML SUBCUT SCH ×4 (08:36→21:05)
[2020-02-27] MEDS: CARBIDOPA/LEVODOPA 25-100 MG TABLET PO SCH ×3 (08:36→21:06)
[2020-02-27] MEDS ORDERED: CHOLECALCIFEROL 1,000 UNIT TABLET PO SCH (09:00)
[2020-02-27] MEDS: PREGABALIN 75 MG CAPSULE PO SCH ×2 (11:00→21:09)
[2020-02-27] MEDS: VANCOMYCIN INJ 2,000 MG in SODIUM CHLORIDE 0.9% 500 ML IV SCH (11:02)
[2020-02-27] MEDS ORDERED: HYDROmorphone 2 MG/1 ML VIAL SUBCUT ONE (11:51)
[2020-02-27] MEDS ORDERED: INSULIN GLARGINE 100 UNIT/ML SUBCUT SCH (12:15)
[2020-02-27] MEDS ORDERED: ALPRAZolam 0.5 MG TABLET PO PRN (12:27)
[2020-02-27] MEDS: LACTOBACILLUS ACIDOPHILUS/BULGARICUS CAPLET PO SCH (14:32)
[2020-02-27] MEDS: RIVAROXABAN 10 MG TABLET PO SCH (21:07)
[2020-02-28] MEDS: MELATONIN 3 MG TABLET PO PRN (00:07)
[2020-02-28] MEDS: PIPERACILLIN/TAZOBACTAM 3,375 MG in SODIUM CHLORIDE 0.9% 100 ML IV SCH ×3 (00:19→16:06)
[2020-02-28] MEDS ORDERED: HYDROmorphone 2 MG/1 ML VIAL SUBCUT ONE (06:00)
[2020-02-28] MEDS: INSULIN ASPART PROTAMINE/ASPART 70/30 100 UNIT/ML SUBCUT SCH ×2 (08:52→16:06)
[2020-02-28] MEDS: CARBIDOPA/LEVODOPA 25-100 MG TABLET PO SCH ×3 (08:53→20:38)
[2020-02-28] MEDS: CHOLECALCIFEROL 1,000 UNIT TABLET PO SCH (08:53)
[2020-02-28] MEDS: INSULIN LISPRO 100 UNIT/ML SUBCUT SCH ×4 (08:53→20:39)
[2020-02-28] MEDS: LACTOBACILLUS ACIDOPHILUS/BULGARICUS CAPLET PO SCH (08:54)
[2020-02-28] MEDS: FUROSEMIDE 40 MG TABLET PO SCH (08:54)
[2020-02-28] MEDS: PREGABALIN 75 MG CAPSULE PO SCH ×2 (09:02→20:38)
[2020-02-28] MEDS ORDERED: INSULIN ASPART PROTAMINE/ASPART 70/30 100 UNIT/ML SUBCUT SCH (18:35)
[2020-02-28] MEDS: MAGNESIUM HYDROXIDE SUSP 30 ML UDCUP PO PRN (20:37)
[2020-02-28] MEDS: RIVAROXABAN 10 MG TABLET PO SCH (20:38)
[2020-02-29] MEDS: PIPERACILLIN/TAZOBACTAM 3,375 MG in SODIUM CHLORIDE 0.9% 100 ML IV SCH ×2 (01:02→08:15)
[2020-02-29] MEDS: MELATONIN 3 MG TABLET PO PRN (01:14)
[2020-02-29 05:33] LABS: Basophils # 0.1 10*3/uL (0.0-0.2); Basophils % 0.5 % (0.0-0.8); Eosinophils # 0.1 10*3/uL (0.0-0.87); Eosinophils % 1.4 % (0.00-10.9); Hematocrit 31.2 VOL% (42.0-52.0); Hemoglobin 10.2 GM/DL (14.0-18.0); Immature Granulocytes % 0.7 %; Immature Granulocytes Absolute 0.07 #; Lymphocytes # 2.6 10*3/uL (1.4-4.0); Lymphocytes % 27.6 % (21.2-54.2); Mean Corpuscular HGB Conc 32.7 GM/DL (32-36); Mean Corpuscular Volume 85.5 FL (87-102); Mean Platelet Volume 10.3 FL (9.6-12.0); Monocytes % 6.1 % (1.7-12.7); Neutrophils % 63.7 % (38.7-73.9); Platelet Count 378 T/CUMM (130-400); Red Blood Count 3.65 MC/CUMM (3.8-5.5); White Blood Count 9.5 T/CUMM (4-12)
[2020-02-29 05:49] LABS: Calcium 9.1 MG/DL (8.5-10.1); Osmolality,Calculated 286.7 MOS/KG (273-304)
[2020-02-29] MEDS: CARBIDOPA/LEVODOPA 25-100 MG TABLET PO SCH ×2 (08:11→14:33)
[2020-02-29] MEDS: CHOLECALCIFEROL 1,000 UNIT TABLET PO SCH (08:11)
[2020-02-29] MEDS: LACTOBACILLUS ACIDOPHILUS/BULGARICUS CAPLET PO SCH (08:12)
[2020-02-29] MEDS: FUROSEMIDE 40 MG TABLET PO SCH (08:12)
[2020-02-29] MEDS: INSULIN LISPRO 100 UNIT/ML SUBCUT SCH ×2 (08:14→12:21)
[2020-02-29] MEDS: PREGABALIN 75 MG CAPSULE PO SCH (08:14)
[2020-02-29] MEDS: MAGNESIUM HYDROXIDE SUSP 30 ML UDCUP PO PRN (08:17)
[2020-02-29 11:36] VITALS: BP 161/70
== END 2020-02-29 15:17 | disposition home or self-care (01) | DRG 42 ==
LOC: N.ED 21:07 → N.EDINP 02-25 01:17 → N.3E 02-25 02:40
PROVIDERS: ADMIT Hospitalist; ATTEND Hospitalist

== ENCOUNTER 2020-09-25 15:01 | Inpatient (IN) ==
[2020-09-25] MEDS ORDERED: NALOXONE 0.4 MG/ML VIAL IV STA (15:45)
[2020-09-25 16:27] LABS: Basophils # 0.1 10*3/uL (0.0-0.2); Basophils % 0.3 % (0.0-0.8); Eosinophils # 0.1 10*3/uL (0.0-0.87); Eosinophils % 0.4 % (0.00-10.9); Hematocrit 38.7 VOL% (42.0-52.0); Hemoglobin 12.3 GM/DL (14.0-18.0); Immature Granulocytes % 0.6 %; Immature Granulocytes Absolute 0.09 #; Lymphocytes # 2.3 10*3/uL (1.4-4.0); Lymphocytes % 14.5 % (21.2-54.2); Mean Corpuscular HGB Conc 31.8 GM/DL (32-36); Mean Corpuscular Volume 89.8 FL (87-102); Mean Platelet Volume 10.7 FL (9.6-12.0); Monocytes % 6.2 % (1.7-12.7); Platelet Count 261 T/CUMM (130-400); Red Blood Count 4.31 MC/CUMM (3.8-5.5); White Blood Count 15.6 T/CUMM (4-12)
[2020-09-25] MEDS ORDERED: AZITHROMYCIN 250 MG TABLET PO STA (16:44)
[2020-09-25] MEDS ORDERED: cefTRIAXone 1,000 MG in SODIUM CHLORIDE 0.9% 100 ML IV STA (16:44)
[2020-09-25 16:45] LABS: Bilirubin,Total 0.9 MG/DL (0.2-1.0); Calcium 9.1 MG/DL (8.5-10.1); Osmolality,Calculated 288.3 MOS/KG (273-304); Total Protein 8.2 G/DL (6.4-8.2)
[2020-09-25 16:46] LABS: Potassium 5.1 MMOL/L (3.5-5.1)
[2020-09-25 16:51] LABS: Bacteria,Urine Occasional /HPF (Few); Bilirubin,Urine Negative (Negative); Blood, Urine Small mg/dL (Negative); Glucose,Urine (UA) Negative (Negative); Ketones,Urine Negative (Negative); Mucus,Urine Occasional /LPF (Occasional); Nitrite,Urine Negative (Negative); Protein,Urine >=500 MG/DL; RBC,Urine 2 /HPF (0-4); Squamous Epithelial Cell,Urine Occasional /HPF (0-10); Urine Appearance CLEAR (Clear); Urine Color Yellow (Yellow); Urine Specific Gravity 1.012 (1.001-1.035); Urine Urobilinogen < 2.0 EU/DL (0.2-1.0); WBC,Urine 11 /HPF (0-6)
[2020-09-25] MEDS ORDERED: GLUCAGON 1 MG VIAL IM PRN (17:14)
[2020-09-25] MEDS ORDERED: ONDANSETRON 4 MG/2 ML VIAL IV PRN (17:14)
[2020-09-25] MEDS ORDERED: DEXTROSE 50% 25 GM/50 ML VIAL IV PRN ×2 (17:14→17:17)
[2020-09-25] MEDS ORDERED: AZITHROMYCIN INJ 500 MG in SODIUM CHLORIDE 0.9% 250 ML IV STA (17:21)
[2020-09-25 18:32] LABS: ABG Base Excess -0.8 MMOL/L (-2.5-2.5); ABG HCO3 23.7 MMOL/L (20-26); ABG Oxygen Saturation 95.8 % (95-100); ABG PH 7.387 (7.35-7.45); ABG PO2 79.1 MM HG (80-95); ABG TCO2 21.7 MMOL/L (23-27)
[2020-09-25] MEDS: INSULIN REGULAR 100 UNIT/ML SUBCUT SCH (20:07)
[2020-09-25] MEDS: hydrALAZINE 25 MG TABLET PO SCH (21:07)
[2020-09-25] MEDS: cloNIDine 0.1 MG TABLET PO SCH (21:07)
[2020-09-25] MEDS: DOCUSATE SODIUM 100 MG CAPSULE PO SCH (21:07)
[2020-09-25] MEDS: MORPHINE 4 MG/1 ML VIAL IV PRN (21:08)
[2020-09-25] MEDS: ENOXAPARIN 40 MG/0.4 ML SYRINGE SUBCUT SCH (22:55)
[2020-09-26 05:52] LABS: Basophils # 0.1 10*3/uL (0.0-0.2); Basophils % 0.4 % (0.0-0.8); Eosinophils % 0.3 % (0.00-10.9); Hematocrit 29.9 VOL% (42.0-52.0); Immature Granulocytes % 0.4 %; Immature Granulocytes Absolute 0.06 #; Lymphocytes # 2.3 10*3/uL (1.4-4.0); Lymphocytes % 17.5 % (21.2-54.2); Mean Corpuscular HGB Conc 33.4 GM/DL (32-36); Mean Corpuscular Volume 87.9 FL (87-102); Mean Platelet Volume 10.6 FL (9.6-12.0); Monocytes % 5.5 % (1.7-12.7); Neutrophils % 75.9 % (38.7-73.9); Platelet Count 247 T/CUMM (130-400); Red Cell Distribution Width 14.7 % (9.3-17.3); White Blood Count 13.4 T/CUMM (4-12)
[2020-09-26 06:16] LABS: Hypochromasia 1+; Lymphocytes 14 % (20-55); Microcytosis 1+; Platelet Estimate Adequate; Segmented Neutrophils 83 % (50-85); Total Cells Counted 100
[2020-09-26 06:23] LABS: Calcium 8.5 MG/DL (8.5-10.1); Osmolality,Calculated 300.3 MOS/KG (273-304); Potassium 4.4 MMOL/L (3.5-5.1)
[2020-09-26] MEDS ORDERED: INSULIN ASPART PROTAMINE/ASPART 70/30 100 UNIT/ML SUBCUT SCH (07:30)
[2020-09-26] MEDS: MORPHINE 4 MG/1 ML VIAL IV PRN (08:53)
[2020-09-26] MEDS: FUROSEMIDE 40 MG TABLET PO SCH (08:55)
[2020-09-26] MEDS: CHOLECALCIFEROL 5,000 UNIT TABLET PO SCH (08:55)
[2020-09-26] MEDS: LOSARTAN/HCTZ 50-12.5 MG TABLET PO SCH (08:55)
[2020-09-26] MEDS: DOCUSATE SODIUM 100 MG CAPSULE PO SCH ×2 (08:55→20:56)
[2020-09-26] MEDS: cloNIDine 0.1 MG TABLET PO SCH ×2 (08:55→20:55)
[2020-09-26] MEDS: hydrALAZINE 25 MG TABLET PO SCH ×3 (08:55→20:55)
[2020-09-26] MEDS: PANTOPRAZOLE 40 MG TABLET PO SCH (08:56)
[2020-09-26] MEDS: INSULIN REGULAR 100 UNIT/ML SUBCUT SCH ×5 (08:56→20:23)
[2020-09-26] MEDS ORDERED: ERGOCALCIFEROL 50,000 UNIT CAPSULE PO ONE (10:13)
[2020-09-26] MEDS: AZITHROMYCIN INJ 500 MG in SODIUM CHLORIDE 0.9% 250 ML IV SCH (14:13)
[2020-09-26] MEDS: INSULIN ASPART PROTAMINE/ASPART 70/30 100 UNIT/ML SUBCUT SCH (17:15)
[2020-09-26] MEDS ORDERED: cefTRIAXone 2,000 MG in SODIUM CHLORIDE 0.9% 100 ML IV SCH (17:30)
[2020-09-26] MEDS: ENOXAPARIN 40 MG/0.4 ML SYRINGE SUBCUT SCH (17:40)
[2020-09-27 05:36] LABS: Basophils % 0.4 % (0.0-0.8); Eosinophils # 0.2 10*3/uL (0.0-0.87); Eosinophils % 2.3 % (0.00-10.9); Hematocrit 33.3 VOL% (42.0-52.0); Hemoglobin 10.9 GM/DL (14.0-18.0); Immature Granulocytes % 0.4 %; Immature Granulocytes Absolute 0.04 #; Lymphocytes # 1.8 10*3/uL (1.4-4.0); Lymphocytes % 18.9 % (21.2-54.2); Mean Corpuscular HGB Conc 32.7 GM/DL (32-36); Mean Platelet Volume 10.4 FL (9.6-12.0); Monocytes % 7.7 % (1.7-12.7); Neutrophils % 70.3 % (38.7-73.9); Platelet Count 265 T/CUMM (130-400); Red Blood Count 3.74 MC/CUMM (3.8-5.5); Red Cell Distribution Width 14.8 % (9.3-17.3); White Blood Count 9.8 T/CUMM (4-12)
[2020-09-27 06:11] LABS: Calcium 9.3 MG/DL (8.5-10.1); Potassium 3.9 MMOL/L (3.5-5.1)
[2020-09-27] MEDS: INSULIN REGULAR 100 UNIT/ML SUBCUT SCH ×2 (08:00→11:35)
[2020-09-27] MEDS ORDERED: ERGOCALCIFEROL 50,000 UNIT CAPSULE PO ONE (08:53)
[2020-09-27] MEDS: LOSARTAN/HCTZ 50-12.5 MG TABLET PO SCH (09:30)
[2020-09-27] MEDS: cloNIDine 0.1 MG TABLET PO SCH (09:31)
[2020-09-27] MEDS: DOCUSATE SODIUM 100 MG CAPSULE PO SCH (09:31)
[2020-09-27] MEDS: PANTOPRAZOLE 40 MG TABLET PO SCH (09:31)
[2020-09-27] MEDS: FUROSEMIDE 40 MG TABLET PO SCH (09:32)
[2020-09-27] MEDS: hydrALAZINE 25 MG TABLET PO SCH (09:32)
[2020-09-27] MEDS: INSULIN ASPART PROTAMINE/ASPART 70/30 100 UNIT/ML SUBCUT SCH (09:33)
[2020-09-27] MEDS: CHOLECALCIFEROL 5,000 UNIT TABLET PO SCH (09:36)
[2020-09-27 11:43] VITALS: BP 162/70
[2020-09-27] MEDS: AZITHROMYCIN INJ 500 MG in SODIUM CHLORIDE 0.9% 250 ML IV SCH (13:30)
== END 2020-09-27 13:30 | disposition home health service (06) | DRG 193 ==
LOC: EDUNIT# → EDBD → N.ED 15:01 → N.EDINP 17:03 → N.3E 18:47
PROVIDERS: ADMIT Hospitalist; ATTEND Hospitalist

== ENCOUNTER 2020-10-18 13:05 | Inpatient (IN) ==
[2020-10-18 15:18] LABS: Basophils % 0.1 % (0.0-0.8); Eosinophils % 0.2 % (0.00-10.9); Hematocrit 32.4 VOL% (42.0-52.0); Hemoglobin 10.1 GM/DL (14.0-18.0); Immature Granulocytes % 0.6 %; Immature Granulocytes Absolute 0.09 #; Lymphocytes # 1.7 10*3/uL (1.4-4.0); Lymphocytes % 12.2 % (21.2-54.2); Mean Corpuscular HGB Conc 31.2 GM/DL (32-36); Neutrophils % 79.9 % (38.7-73.9); Platelet Count 254 T/CUMM (130-400); Red Blood Count 3.56 MC/CUMM (3.8-5.5); Red Cell Distribution Width 14.3 % (9.3-17.3); White Blood Count 14.2 T/CUMM (4-12)
[2020-10-18 15:32] LABS: Bilirubin,Total 0.4 MG/DL (0.2-1.0); Calcium 9.3 MG/DL (8.5-10.1); Osmolality,Calculated 294.4 MOS/KG (273-304); Potassium 4.2 MMOL/L (3.5-5.1); Total Protein 8.2 G/DL (6.4-8.2)
[2020-10-18] MEDS ORDERED: PIPERACILLIN/TAZOBACTAM 3,375 MG in SODIUM CHLORIDE 0.9% 100 ML IV STA (15:42)
[2020-10-18] MEDS ORDERED: SODIUM CHLORIDE 0.9% 500 ML IV STA (15:48)
[2020-10-18] MEDS ORDERED: DEXTROSE 50% 25 GM/50 ML VIAL IV PRN (16:58)
[2020-10-18] MEDS ORDERED: ONDANSETRON 4 MG/2 ML VIAL IV PRN (16:58)
[2020-10-18] MEDS ORDERED: hydrALAZINE 20 MG/1 ML VIAL IV PRN (16:58)
[2020-10-18] MEDS ORDERED: ACETAMINOPHEN 325 MG TABLET PO PRN (16:58)
[2020-10-18] MEDS ORDERED: GLUCAGON 1 MG VIAL IM PRN (16:58)
[2020-10-18] MEDS ORDERED: ACETAMINOPHEN 650 MG SUPP RECTAL PRN (17:07)
[2020-10-18 17:38] LABS: Risk Ratio 2.58; Thyroid Stimulating Hormone 0.972 uIU/ml (0.358-3.74); VLDL CHOLESTEROL 15.4 MG/DL
[2020-10-18 18:39] LABS: Bilirubin,Urine Negative (Negative); Blood, Urine Small mg/dL (Negative); Glucose,Urine (UA) 50 mg/dL (Negative); Ketones,Urine Negative (Negative); Nitrite,Urine Negative (Negative); Protein,Urine >=500 MG/DL; RBC,Urine 4 /HPF (0-4); Squamous Epithelial Cell,Urine Few /HPF (0-10); Urine Appearance CLEAR (Clear); Urine Color Yellow (Yellow); Urine Specific Gravity 1.013 (1.001-1.035); Urine Urobilinogen < 2.0 EU/DL (0.2-1.0)
[2020-10-18 18:49] LABS: Barbiturates Screen,Urine Negative (Negative); Benzodiazepines Screen,Urine Negative (Negative); Cannabinoid Screen,Urine Negative (Negative); Opiate Screen,Urine Positive (Negative); Phencyclidine Screen,Urine Negative (Negative)
[2020-10-18 19:06] LABS: Band Neutrophils 8 % (0-10); Lymphocytes 16 % (20-55); Segmented Neutrophils 74 % (50-85); Total Cells Counted 100
[2020-10-18 19:07] LABS: Platelet Estimate Normal
[2020-10-18] MEDS: LACTATED RINGERS 1,000 ML IV SCH (20:15)
[2020-10-18] MEDS: INSULIN LISPRO 100 UNIT/ML SUBCUT SCH (20:17)
[2020-10-18] MEDS: ENOXAPARIN 40 MG/0.4 ML SYRINGE SUBCUT SCH (20:20)
[2020-10-19] MEDS: INSULIN LISPRO 100 UNIT/ML SUBCUT SCH ×5 (01:55→23:19)
[2020-10-19] MEDS: PIPERACILLIN/TAZOBACTAM 3,375 MG in SODIUM CHLORIDE 0.9% 100 ML IV SCH ×3 (02:13→17:19)
[2020-10-19] MEDS: LACTATED RINGERS 1,000 ML IV SCH ×2 (05:19→17:29)
[2020-10-19 06:29] LABS: Basophils % 0.2 % (0.0-0.8); Eosinophils # 0.1 10*3/uL (0.0-0.87); Eosinophils % 0.4 % (0.00-10.9); Hematocrit 29.4 VOL% (42.0-52.0); Hemoglobin 9.3 GM/DL (14.0-18.0); Immature Granulocytes % 0.4 %; Immature Granulocytes Absolute 0.06 #; Lymphocytes # 2.2 10*3/uL (1.4-4.0); Lymphocytes % 16.4 % (21.2-54.2); Mean Corpuscular HGB Conc 31.6 GM/DL (32-36); Mean Corpuscular Volume 89.4 FL (87-102); Mean Platelet Volume 10.9 FL (9.6-12.0); Monocytes % 5.5 % (1.7-12.7); Neutrophils % 77.1 % (38.7-73.9); Platelet Count 259 T/CUMM (130-400); Red Blood Count 3.29 MC/CUMM (3.8-5.5); Red Cell Distribution Width 14.1 % (9.3-17.3); White Blood Count 13.4 T/CUMM (4-12)
[2020-10-19 06:44] LABS: Calcium 8.8 MG/DL (8.5-10.1); Potassium 3.5 MMOL/L (3.5-5.1)
[2020-10-19 08:18] LABS: Band Neutrophils 8 % (0-10); Eosinophils 1 % (0-10); Lymphocytes 16 % (20-55); Segmented Neutrophils 71 % (50-85); Total Cells Counted 100
[2020-10-19 08:19] LABS: Anisocytosis 1+; Macrocytosis 1+; Platelet Estimate Normal
[2020-10-19] MEDS: AZITHROMYCIN INJ 500 MG in SODIUM CHLORIDE 0.9% 250 ML IV SCH (08:47)
[2020-10-19] MEDS: GABAPENTIN 400 MG CAPSULE PO SCH ×2 (09:59→22:00)
[2020-10-19] MEDS: hydrALAZINE 25 MG TABLET PO SCH ×2 (16:06→22:01)
[2020-10-19] MEDS: INSULIN ASPART PROTAMINE/ASPART 70/30 100 UNIT/ML SUBCUT SCH (16:09)
[2020-10-19] MEDS: ENOXAPARIN 40 MG/0.4 ML SYRINGE SUBCUT SCH (22:01)
[2020-10-20] MEDS: PIPERACILLIN/TAZOBACTAM 3,375 MG in SODIUM CHLORIDE 0.9% 100 ML IV SCH ×3 (01:35→18:08)
[2020-10-20] MEDS: INSULIN LISPRO 100 UNIT/ML SUBCUT SCH ×4 (05:04→22:34)
[2020-10-20 07:16] LABS: Basophils # 0.1 10*3/uL (0.0-0.2); Basophils % 0.6 % (0.0-0.8); Eosinophils # 0.2 10*3/uL (0.0-0.87); Eosinophils % 1.9 % (0.00-10.9); Hematocrit 30.4 VOL% (42.0-52.0); Hemoglobin 9.4 GM/DL (14.0-18.0); Immature Granulocytes % 1.2 %; Lymphocytes # 2.4 10*3/uL (1.4-4.0); Lymphocytes % 27.8 % (21.2-54.2); Mean Corpuscular HGB Conc 30.9 GM/DL (32-36); Mean Corpuscular Volume 94.7 FL (87-102); Mean Platelet Volume 12.3 FL (9.6-12.0); Monocytes % 7.4 % (1.7-12.7); Neutrophils % 61.1 % (38.7-73.9); Platelet Count 149 T/CUMM (130-400); Red Blood Count 3.21 MC/CUMM (3.8-5.5); Red Cell Distribution Width 14.3 % (9.3-17.3); White Blood Count 8.5 T/CUMM (4-12)
[2020-10-20 07:31] LABS: Calcium 8.4 MG/DL (8.5-10.1); Osmolality,Calculated 289.3 MOS/KG (273-304); Potassium 3.9 MMOL/L (3.5-5.1)
[2020-10-20] MEDS: INSULIN ASPART PROTAMINE/ASPART 70/30 100 UNIT/ML SUBCUT SCH ×2 (08:22→22:34)
[2020-10-20] MEDS: GABAPENTIN 400 MG CAPSULE PO SCH ×2 (08:23→20:36)
[2020-10-20] MEDS: hydrALAZINE 25 MG TABLET PO SCH ×3 (08:23→20:37)
[2020-10-20] MEDS: AZITHROMYCIN INJ 500 MG in SODIUM CHLORIDE 0.9% 250 ML IV SCH (08:32)
[2020-10-20 10:39] LABS: Anisocytosis 1+; Burr Cells 1+; Platelet Estimate Adequate
[2020-10-20 10:40] LABS: Macrocytosis Slight
[2020-10-20] MEDS: LACTATED RINGERS 1,000 ML IV SCH ×2 (10:46→22:35)
[2020-10-20] MEDS: ENOXAPARIN 40 MG/0.4 ML SYRINGE SUBCUT SCH (20:37)
[2020-10-21] MEDS: PIPERACILLIN/TAZOBACTAM 3,375 MG in SODIUM CHLORIDE 0.9% 100 ML IV SCH ×2 (03:40→15:22)
[2020-10-21 07:09] LABS: Basophils % 0.4 % (0.0-0.8); Eosinophils # 0.2 10*3/uL (0.0-0.87); Eosinophils % 2.7 % (0.00-10.9); Hematocrit 26.3 VOL% (42.0-52.0); Hemoglobin 8.7 GM/DL (14.0-18.0); Immature Granulocytes % 0.4 %; Immature Granulocytes Absolute 0.03 #; Lymphocytes # 2.1 10*3/uL (1.4-4.0); Mean Corpuscular HGB Conc 33.1 GM/DL (32-36); Mean Corpuscular Volume 87.7 FL (87-102); Mean Platelet Volume 10.6 FL (9.6-12.0); Monocytes % 6.4 % (1.7-12.7); Neutrophils % 60.1 % (38.7-73.9); Platelet Count 255 T/CUMM (130-400); Red Cell Distribution Width 14.1 % (9.3-17.3); White Blood Count 7.1 T/CUMM (4-12)
[2020-10-21 07:22] LABS: Calcium 8.1 MG/DL (8.5-10.1); Potassium 3.2 MMOL/L (3.5-5.1)
[2020-10-21] MEDS: AZITHROMYCIN INJ 500 MG in SODIUM CHLORIDE 0.9% 250 ML IV SCH (09:13)
[2020-10-21] MEDS: hydrALAZINE 25 MG TABLET PO SCH ×2 (09:14→15:23)
[2020-10-21] MEDS: GABAPENTIN 400 MG CAPSULE PO SCH (09:14)
[2020-10-21] MEDS: INSULIN LISPRO 100 UNIT/ML SUBCUT SCH ×3 (10:21→18:15)
[2020-10-21] MEDS: INSULIN ASPART PROTAMINE/ASPART 70/30 100 UNIT/ML SUBCUT SCH ×2 (10:22→17:28)
[2020-10-21] MEDS ORDERED: POTASSIUM CHLORIDE 20 MEQ TABLET PO ONE (11:00)
[2020-10-21 15:04] VITALS: BP 150/77
[2020-10-21] MEDS: LACTATED RINGERS 1,000 ML IV SCH (17:28)
[2020-10-22] MEDS ORDERED: AZITHROMYCIN 250 MG TABLET PO SCH (09:00)
== END 2020-10-21 18:15 | disposition home health service (06) | DRG 871 ==
LOC: EDUNIT# → N.ED 13:05 → N.EDINP 16:29 → SUATTDRO 16:29 → N.5E 19:21
PROVIDERS: ADMIT Internal Medicine; ATTEND Internal Medicine

== ENCOUNTER 2021-09-15 13:01 | Inpatient (IN) ==
[2021-09-15 18:21] LABS: Basophils % 0.6 % (0.0-0.8); Eosinophils # 0.1 10*3/uL (0.0-0.87); Eosinophils % 1.8 % (0.00-10.9); Hematocrit 32.7 VOL% (42.0-52.0); Hemoglobin 10.7 GM/DL (14.0-18.0); Immature Granulocytes % 0.3 %; Immature Granulocytes Absolute 0.02 #; Lymphocytes # 1.8 10*3/uL (1.4-4.0); Lymphocytes % 27.7 % (21.2-54.2); Mean Corpuscular HGB Conc 32.7 GM/DL (32-36); Mean Corpuscular Volume 88.9 FL (87-102); Mean Platelet Volume 10.5 FL (9.6-12.0); Monocytes # 0.4 10*3/uL (0.11-0.8); Neutrophils % 63.6 % (38.7-73.9); Platelet Count 256 T/CUMM (130-400); Red Blood Count 3.68 MC/CUMM (3.8-5.5); Red Cell Distribution Width 14.7 % (9.3-17.3); White Blood Count 6.5 T/CUMM (4-12)
[2021-09-15 18:41] LABS: Alanine Aminotransferase 29 U/L (16-61); Albumin 1.9 G/DL (3.4-5.0); Alkaline Phosphatase 89 U/L (45-117); Aspartate Amino Transferase 26 U/L (0-37); Bilirubin,Total < 0.39 MG/DL (0.20-1.00); Blood Urea Nitrogen 38 MG/DL (7-18); Calcium 8.1 MG/DL (8.5-10.1); Carbon Dioxide 25 MMOL/L (21-32); Chloride 115 MMOL/L (98-107); Estimated Glom Filtration Rate 35 ML/MIN; Glucose 130 MG/DL (74-106); Osmolality,Calculated 293.1 MOS/KG (273-304); Sodium 142 MMOL/L (136-145); Total Protein 6.3 G/DL (6.4-8.2)
[2021-09-15] MEDS ORDERED: FUROSEMIDE 40 MG/4 ML VIAL IV STA (19:10)
[2021-09-15] MEDS ORDERED: GLUCAGON 1 MG VIAL IM PRN ×2 (19:22→19:31)
[2021-09-15] MEDS ORDERED: DEXTROSE 10% 250 ML BAG IV PRN ×2 (19:26→19:34)
[2021-09-15] MEDS ORDERED: INSULIN NPH/REGULAR 70/30 100 UNIT/ML SUBCUT SCH (20:00)
[2021-09-15] MEDS: hydrALAZINE 20 MG/1 ML VIAL IV PRN (21:15)
[2021-09-15] MEDS ORDERED: INSULIN NPH/REGULAR 70/30 100 UNIT/ML SUBCUT STA (21:31)
[2021-09-15] MEDS: INSULIN LISPRO 100 UNIT/ML SUBCUT SCH (23:43)
[2021-09-16] MEDS: hydrALAZINE 20 MG/1 ML VIAL IV PRN (02:56)
[2021-09-16 05:00] LABS: Basophils % 0.6 % (0.0-0.8); Eosinophils # 0.1 10*3/uL (0.0-0.87); Eosinophils % 2.1 % (0.00-10.9); Hematocrit 33.5 VOL% (42.0-52.0); Immature Granulocytes % 0.2 %; Immature Granulocytes Absolute 0.01 #; Lymphocytes # 1.8 10*3/uL (1.4-4.0); Lymphocytes % 27.1 % (21.2-54.2); Mean Corpuscular HGB Conc 32.8 GM/DL (32-36); Mean Platelet Volume 12.7 FL (9.6-12.0); Monocytes # 0.5 10*3/uL (0.11-0.8); Monocytes % 7.4 % (1.7-12.7); Neutrophils % 62.6 % (38.7-73.9); Platelet Count 138 T/CUMM (130-400); Red Blood Count 3.85 MC/CUMM (3.8-5.5); Red Cell Distribution Width 14.8 % (9.3-17.3); White Blood Count 6.6 T/CUMM (4-12)
[2021-09-16 05:36] LABS: Calcium 8.1 MG/DL (8.5-10.1); Osmolality,Calculated 295.7 MOS/KG (273-304); Potassium 3.7 MMOL/L (3.5-5.1)
[2021-09-16] MEDS: INSULIN LISPRO 100 UNIT/ML SUBCUT SCH ×4 (07:50→20:31)
[2021-09-16] MEDS ORDERED: FUROSEMIDE 40 MG/4 ML VIAL IV SCH (09:00)
[2021-09-16] MEDS ORDERED: hydrALAZINE 25 MG TABLET PO SCH (09:00)
[2021-09-16] MEDS: amLODIPine 10 MG TABLET PO SCH (09:29)
[2021-09-16] MEDS: TAMSULOSIN 0.4 MG CAPSULE PO SCH ×2 (09:29→20:31)
[2021-09-16] MEDS: INSULIN NPH/REGULAR 70/30 100 UNIT/ML SUBCUT SCH (09:30)
[2021-09-16] MEDS ORDERED: metOLazone 2.5 MG TABLET PO SCH (11:00)
[2021-09-16] MEDS ORDERED: ALBUMIN 25% 12.5 GM/50 ML VIAL IV SCH (11:00)
[2021-09-16 11:12] LABS: Risk Ratio 2.36; VLDL Cholesterol 12.4 MG/DL
[2021-09-16 11:37] LABS: INR 0.9; PT Patient Result 10.5 SECS (10.5-12.0); Partial Thromboplastin Time 21.3 SECS (23.8-32.1)
[2021-09-16 12:29] LABS: HIV Antigen/Antibody Result Nonreactive (Nonreactive)
[2021-09-16] MEDS: metOLazone 2.5 MG TABLET PO SCH (13:40)
[2021-09-16] MEDS: ONDANSETRON 4 MG/2 ML VIAL IV PRN (16:21)
[2021-09-16] MEDS ORDERED: INSULIN NPH/REGULAR 70/30 100 UNIT/ML SUBCUT SCH (16:30)
[2021-09-16 18:01] LABS: Bacteria,Urine Occasional /HPF (Few); Hyaline Casts,Urine 4 /LPF (0-3); Mucus,Urine Occasional /LPF (Occasional); Protein,Urine >=300 mg/dL (Negative); RBC,Urine 1 /HPF (0-4); Squamous Epithelial Cell,Urine Occasional /HPF (0-10); Urine Appearance Clear (Clear); Urine Color Yellow (Yellow)
[2021-09-16 18:02] LABS: Bilirubin,Urine Negative (Negative); Blood, Urine Small mg/dL (Negative); Glucose,Urine (UA) 100 mg/dL (Negative); Ketones,Urine Negative (Negative); Nitrite,Urine Negative (Negative); Urine Urobilinogen 0.2 eU/dL (<2.0)
[2021-09-16] MEDS: FUROSEMIDE 40 MG/4 ML VIAL IV SCH (20:30)
[2021-09-16] MEDS: diphenhydrAMINE CAP 25 MG CAPSULE PO PRN (21:29)
[2021-09-17] MEDS: hydrALAZINE 20 MG/1 ML VIAL IV PRN ×2 (03:28→16:58)
[2021-09-17] MEDS: ONDANSETRON 4 MG/2 ML VIAL IV PRN ×2 (03:28→10:42)
[2021-09-17 04:08] LABS: Total Protein 24 Hr Ur Result 17920 MG/24HR (0-149.1); Total Volume,Urine 2800 ML (400-2000)
[2021-09-17] MEDS: ACETAMINOPHEN 325 MG TABLET PO PRN (04:38)
[2021-09-17 05:25] LABS: Phosphorous 3.8 MG/DL (2.5-4.9); Uric Acid 7.3 MG/DL (3.5-7.2)
[2021-09-17 08:01] LABS: Calcium 8.5 MG/DL (8.5-10.1); Osmolality,Calculated 299.7 MOS/KG (273-304); Potassium 3.7 MMOL/L (3.5-5.1)
[2021-09-17 08:09] LABS: Basophils % 0.3 % (0.0-0.8); Hemoglobin 11.4 GM/DL (14.0-18.0); Immature Granulocytes % 0.4 %; Immature Granulocytes Absolute 0.03 #; Lymphocytes # 1.1 10*3/uL (1.4-4.0); Mean Corpuscular HGB Conc 32.6 GM/DL (32-36); Mean Corpuscular Volume 87.1 FL (87-102); Mean Platelet Volume 10.2 FL (9.6-12.0); Monocytes # 0.4 10*3/uL (0.11-0.8); Monocytes % 5.3 % (1.7-12.7); Platelet Count 270 T/CUMM (130-400); Red Blood Count 4.02 MC/CUMM (3.8-5.5); Red Cell Distribution Width 14.8 % (9.3-17.3); White Blood Count 7.7 T/CUMM (4-12)
[2021-09-17] MEDS: TAMSULOSIN 0.4 MG CAPSULE PO SCH ×2 (09:51→20:32)
[2021-09-17] MEDS: amLODIPine 10 MG TABLET PO SCH (09:52)
[2021-09-17] MEDS: INSULIN LISPRO 100 UNIT/ML SUBCUT SCH ×4 (09:52→20:42)
[2021-09-17] MEDS: metOLazone 2.5 MG TABLET PO SCH (09:52)
[2021-09-17] MEDS: INSULIN NPH/REGULAR 70/30 100 UNIT/ML SUBCUT SCH ×2 (09:53→17:16)
[2021-09-17] MEDS: FUROSEMIDE 40 MG/4 ML VIAL IV SCH ×2 (09:55→20:33)
[2021-09-17] MEDS: diphenhydrAMINE CAP 25 MG CAPSULE PO PRN ×2 (10:44→20:32)
[2021-09-17] MEDS ORDERED: ERGOCALCIFEROL 50,000 UNIT CAPSULE PO SCH (12:00)
[2021-09-17] MEDS: HEPARIN 5,000 UNIT/1 ML VIAL SUBCUT SCH (12:45)
[2021-09-17] MEDS: carvediloL 6.25 MG TABLET PO SCH (20:32)
[2021-09-18] MEDS: HEPARIN 5,000 UNIT/1 ML VIAL SUBCUT SCH ×2 (01:17→13:20)
[2021-09-18] MEDS: FUROSEMIDE 40 MG/4 ML VIAL IV SCH (02:10)
[2021-09-18 05:21] LABS: Alanine Aminotransferase 23 U/L (16-61); Albumin 1.8 G/DL (3.4-5.0); Alkaline Phosphatase 78 U/L (45-117); Aspartate Amino Transferase 26 U/L (0-37); Bilirubin,Total < 0.39 MG/DL (0.20-1.00); Blood Urea Nitrogen 39 MG/DL (7-18); Calcium 8.4 MG/DL (8.5-10.1); Carbon Dioxide 24 MMOL/L (21-32); Chloride 112 MMOL/L (98-107); Estimated Glom Filtration Rate 27 ML/MIN; Glucose 51 MG/DL (74-106); Osmolality,Calculated 288.1 MOS/KG (273-304); Potassium 3.6 MMOL/L (3.5-5.1); Sodium 142 MMOL/L (136-145); Total Protein 6.5 G/DL (6.4-8.2)
[2021-09-18 05:38] LABS: Total Protein 6.4 G/DL (6.4-8.2)
[2021-09-18 06:22] LABS: Immunoglobulin G (Chem) 919 MG/DL (700-1600); Total Protein (Chem) 6.4 G/DL (6.4-8.3)
[2021-09-18 06:23] LABS: Immunoglobulin A (Chem) 537 MG/DL (70-400); Immunoglobulin M (Chem) 92 MG/DL (40-230)
[2021-09-18] MEDS: INSULIN LISPRO 100 UNIT/ML SUBCUT SCH ×4 (08:11→21:54)
[2021-09-18 08:15] LABS: Albumin (SPE) 2.7 G/DL (3.2-5.3); Alpha 1 (SPE) 0.2 G/DL (0.1-0.4); Alpha 1 (SPE) Rel % 3.9 %; Alpha 2 (SPE) 1.5 G/DL (0.4-1.0); Alpha 2 (SPE) Rel % 23.9 %; Beta (SPE) 1.1 G/DL (0.5-1.1); Beta (SPE) Rel % 17.4 %; Gamma (SPE) 0.8 G/DL (0.7-1.7); Gamma (SPE) Rel % 12.8 %
[2021-09-18] MEDS: amLODIPine 10 MG TABLET PO SCH (09:33)
[2021-09-18] MEDS: TAMSULOSIN 0.4 MG CAPSULE PO SCH ×2 (09:33→21:53)
[2021-09-18] MEDS: calcitrioL 0.25 MCG CAPSULE PO SCH (09:33)
[2021-09-18] MEDS: cloNIDine 0.1 MG TABLET PO SCH ×3 (09:33→21:53)
[2021-09-18] MEDS: carvediloL 6.25 MG TABLET PO SCH ×2 (09:33→21:53)
[2021-09-18] MEDS: INSULIN NPH/REGULAR 70/30 100 UNIT/ML SUBCUT SCH (09:34)
[2021-09-18] MEDS: ONDANSETRON 4 MG/2 ML VIAL IV PRN (09:36)
[2021-09-18] MEDS: diphenhydrAMINE CAP 25 MG CAPSULE PO PRN (12:16)
[2021-09-19] MEDS: HEPARIN 5,000 UNIT/1 ML VIAL SUBCUT SCH (01:17)
[2021-09-19 05:33] LABS: Basophils % 0.5 % (0.0-0.8); Eosinophils # 0.2 10*3/uL (0.0-0.87); Eosinophils % 2.3 % (0.00-10.9); Hematocrit 32.1 VOL% (42.0-52.0); Hemoglobin 10.3 GM/DL (14.0-18.0); Immature Granulocytes % 0.2 %; Immature Granulocytes Absolute 0.01 #; Lymphocytes # 1.9 10*3/uL (1.4-4.0); Lymphocytes % 29.1 % (21.2-54.2); Mean Corpuscular HGB Conc 32.1 GM/DL (32-36); Mean Corpuscular Volume 88.9 FL (87-102); Mean Platelet Volume 11.2 FL (9.6-12.0); Monocytes # 0.5 10*3/uL (0.11-0.8); Neutrophils % 59.9 % (38.7-73.9); Platelet Count 245 T/CUMM (130-400); Red Blood Count 3.61 MC/CUMM (3.8-5.5); Red Cell Distribution Width 14.9 % (9.3-17.3); White Blood Count 6.5 T/CUMM (4-12)
[2021-09-19 05:44] LABS: Calcium 7.8 MG/DL (8.5-10.1); Osmolality,Calculated 296.1 MOS/KG (273-304); Potassium 3.8 MMOL/L (3.5-5.1)
[2021-09-19 06:27] LABS: Random Urine Protein (Bench) 1162 MG/DL (<11.9)
[2021-09-19] MEDS: INSULIN LISPRO 100 UNIT/ML SUBCUT SCH ×4 (07:52→20:14)
[2021-09-19] MEDS: FUROSEMIDE 40 MG/4 ML VIAL IV SCH (09:15)
[2021-09-19] MEDS: carvediloL 6.25 MG TABLET PO SCH ×2 (09:15→20:56)
[2021-09-19] MEDS: calcitrioL 0.25 MCG CAPSULE PO SCH (09:15)
[2021-09-19] MEDS: cloNIDine 0.1 MG TABLET PO SCH ×3 (09:15→20:56)
[2021-09-19] MEDS: TAMSULOSIN 0.4 MG CAPSULE PO SCH ×2 (09:15→20:56)
[2021-09-19] MEDS: amLODIPine 10 MG TABLET PO SCH (09:16)
[2021-09-19] MEDS: diphenhydrAMINE CAP 25 MG CAPSULE PO PRN ×2 (09:18→16:24)
[2021-09-19 10:12] LABS: Albumin (UPER) 802.9 MG/DL; Albumin (UPER) Rel% 69.1 %; Alpha 1 (UPER) 58.1 MG/DL; Alpha 2 (UPER) 74.4 MG/DL; Alpha 2 (UPER) Rel % 6.4 %; Beta (UPER) 112.7 MG/DL; Beta (UPER) Rel % 9.7 %; Gamma (UPER) 113.8 MG/DL; Gamma (UPER) Rel % 9.8 %
[2021-09-19 11:16] LABS: Kappa Free Light Chain 11.8 mg/dL; Lambda Free Light Chain 7.92 mg/dL
[2021-09-19] MEDS ORDERED: DIAZEPAM 5 MG TABLET PO ONE (12:30)
[2021-09-20] MEDS: diphenhydrAMINE CAP 25 MG CAPSULE PO PRN ×4 (00:02→23:10)
[2021-09-20] MEDS: INSULIN LISPRO 100 UNIT/ML SUBCUT SCH ×4 (08:19→22:22)
[2021-09-20 08:51] LABS: Basophils % 0.7 % (0.0-0.8); Eosinophils # 0.2 10*3/uL (0.0-0.87); Eosinophils % 2.9 % (0.00-10.9); Hematocrit 31.6 VOL% (42.0-52.0); Hemoglobin 10.2 GM/DL (14.0-18.0); Immature Granulocytes % 0.2 %; Immature Granulocytes Absolute 0.01 #; Lymphocytes # 1.5 10*3/uL (1.4-4.0); Lymphocytes % 24.5 % (21.2-54.2); Mean Corpuscular HGB Conc 32.3 GM/DL (32-36); Mean Corpuscular Volume 89.3 FL (87-102); Mean Platelet Volume 10.6 FL (9.6-12.0); Monocytes # 0.5 10*3/uL (0.11-0.8); Monocytes % 7.8 % (1.7-12.7); Neutrophils % 63.9 % (38.7-73.9); Platelet Count 243 T/CUMM (130-400); Red Blood Count 3.54 MC/CUMM (3.8-5.5); Red Cell Distribution Width 14.8 % (9.3-17.3); White Blood Count 5.9 T/CUMM (4-12)
[2021-09-20 09:05] LABS: Potassium 3.6 MMOL/L (3.5-5.1)
[2021-09-20] MEDS: carvediloL 6.25 MG TABLET PO SCH ×2 (09:24→20:53)
[2021-09-20] MEDS: cloNIDine 0.1 MG TABLET PO SCH ×3 (09:24→20:53)
[2021-09-20] MEDS: calcitrioL 0.25 MCG CAPSULE PO SCH (09:24)
[2021-09-20] MEDS: amLODIPine 10 MG TABLET PO SCH (09:25)
[2021-09-20] MEDS: TAMSULOSIN 0.4 MG CAPSULE PO SCH ×2 (09:25→20:53)
[2021-09-20] MEDS: FUROSEMIDE 40 MG/4 ML VIAL IV SCH (09:25)
[2021-09-20] MEDS: HEPARIN 5,000 UNIT/1 ML VIAL SUBCUT SCH ×2 (12:52→23:10)
[2021-09-20] MEDS: INSULIN NPH/REGULAR 70/30 100 UNIT/ML SUBCUT SCH (17:39)
[2021-09-20] MEDS: SODIUM CHLORIDE 0.45% 1,000 ML IV SCH ×2 (17:39→17:40)
[2021-09-21 05:26] LABS: Calcium 7.8 MG/DL (8.5-10.1); Osmolality,Calculated 294.1 MOS/KG (273-304); Potassium 3.6 MMOL/L (3.5-5.1)
[2021-09-21] MEDS: INSULIN LISPRO 100 UNIT/ML SUBCUT SCH ×4 (08:34→21:35)
[2021-09-21] MEDS: calcitrioL 0.25 MCG CAPSULE PO SCH (09:38)
[2021-09-21] MEDS: carvediloL 6.25 MG TABLET PO SCH ×2 (09:39→21:34)
[2021-09-21] MEDS: amLODIPine 10 MG TABLET PO SCH (09:39)
[2021-09-21] MEDS: cloNIDine 0.1 MG TABLET PO SCH ×2 (09:39→21:33)
[2021-09-21] MEDS: TAMSULOSIN 0.4 MG CAPSULE PO SCH ×2 (09:39→21:33)
[2021-09-21] MEDS: diphenhydrAMINE CAP 25 MG CAPSULE PO PRN ×3 (09:39→21:34)
[2021-09-21] MEDS: FUROSEMIDE 40 MG/4 ML VIAL IV SCH (09:40)
[2021-09-21] MEDS: INSULIN NPH/REGULAR 70/30 100 UNIT/ML SUBCUT SCH ×2 (09:40→17:51)
[2021-09-21] MEDS: HEPARIN 5,000 UNIT/1 ML VIAL SUBCUT SCH ×2 (14:53→23:29)
[2021-09-21] MEDS: SODIUM CHLORIDE 0.45% 1,000 ML IV SCH (14:58)
[2021-09-22 01:53] LABS: Basophils % 0.5 % (0.0-0.8); Eosinophils # 0.2 10*3/uL (0.0-0.87); Eosinophils % 2.6 % (0.00-10.9); Hematocrit 32.6 VOL% (42.0-52.0); Hemoglobin 10.7 GM/DL (14.0-18.0); Immature Granulocytes % 0.2 %; Immature Granulocytes Absolute 0.01 #; Lymphocytes # 1.5 10*3/uL (1.4-4.0); Lymphocytes % 24.2 % (21.2-54.2); Mean Corpuscular HGB Conc 32.8 GM/DL (32-36); Mean Corpuscular Volume 86.9 FL (87-102); Mean Platelet Volume 10.2 FL (9.6-12.0); Monocytes # 0.6 10*3/uL (0.11-0.8); Neutrophils % 62.5 % (38.7-73.9); Platelet Count 248 T/CUMM (130-400); Red Blood Count 3.75 MC/CUMM (3.8-5.5); Red Cell Distribution Width 14.4 % (9.3-17.3); White Blood Count 6.2 T/CUMM (4-12)
[2021-09-22 05:55] LABS: Calcium 8.1 MG/DL (8.5-10.1); Potassium 3.9 MMOL/L (3.5-5.1)
[2021-09-22] MEDS: INSULIN LISPRO 100 UNIT/ML SUBCUT SCH ×4 (07:57→21:56)
[2021-09-22] MEDS: TAMSULOSIN 0.4 MG CAPSULE PO SCH ×2 (08:55→21:55)
[2021-09-22] MEDS: calcitrioL 0.25 MCG CAPSULE PO SCH (08:55)
[2021-09-22] MEDS: cloNIDine 0.1 MG TABLET PO SCH ×2 (08:55→21:54)
[2021-09-22] MEDS: amLODIPine 10 MG TABLET PO SCH (08:55)
[2021-09-22] MEDS: diphenhydrAMINE CAP 25 MG CAPSULE PO PRN ×3 (08:56→21:55)
[2021-09-22] MEDS: FUROSEMIDE 40 MG/4 ML VIAL IV SCH (08:56)
[2021-09-22] MEDS: carvediloL 6.25 MG TABLET PO SCH ×2 (08:56→21:55)
[2021-09-22] MEDS: INSULIN NPH/REGULAR 70/30 100 UNIT/ML SUBCUT SCH ×2 (09:45→18:13)
[2021-09-22] MEDS: HEPARIN 5,000 UNIT/1 ML VIAL SUBCUT SCH (12:07)
[2021-09-22] MEDS: SODIUM CHLORIDE 0.45% 1,000 ML IV SCH (15:59)
[2021-09-23] MEDS: HEPARIN 5,000 UNIT/1 ML VIAL SUBCUT SCH ×2 (01:56→12:42)
[2021-09-23] MEDS: FUROSEMIDE INJ 200 MG in SODIUM CHLORIDE 0.9% 80 ML IV SCH (01:57)
[2021-09-23 04:45] LABS: Basophils % 0.4 % (0.0-0.8); Eosinophils # 0.2 10*3/uL (0.0-0.87); Hematocrit 30.5 VOL% (42.0-52.0); Hemoglobin 9.8 GM/DL (14.0-18.0); Immature Granulocytes % 0.2 %; Immature Granulocytes Absolute 0.01 #; Lymphocytes # 1.6 10*3/uL (1.4-4.0); Lymphocytes % 29.9 % (21.2-54.2); Mean Corpuscular HGB Conc 32.1 GM/DL (32-36); Mean Corpuscular Volume 88.2 FL (87-102); Mean Platelet Volume 10.7 FL (9.6-12.0); Monocytes # 0.5 10*3/uL (0.11-0.8); Monocytes % 9.8 % (1.7-12.7); Neutrophils % 55.7 % (38.7-73.9); Platelet Count 235 T/CUMM (130-400); Red Blood Count 3.46 MC/CUMM (3.8-5.5); Red Cell Distribution Width 14.4 % (9.3-17.3); White Blood Count 5.2 T/CUMM (4-12)
[2021-09-23 05:08] LABS: Calcium 7.7 MG/DL (8.5-10.1); Potassium 3.4 MMOL/L (3.5-5.1)
[2021-09-23] MEDS: carvediloL 6.25 MG TABLET PO SCH ×2 (09:54→20:44)
[2021-09-23] MEDS: TAMSULOSIN 0.4 MG CAPSULE PO SCH ×2 (09:54→20:44)
[2021-09-23] MEDS: calcitrioL 0.25 MCG CAPSULE PO SCH (09:54)
[2021-09-23] MEDS: cloNIDine 0.1 MG TABLET PO SCH ×2 (09:54→20:44)
[2021-09-23] MEDS: amLODIPine 10 MG TABLET PO SCH (09:54)
[2021-09-23] MEDS: diphenhydrAMINE CAP 25 MG CAPSULE PO PRN ×2 (09:57→17:51)
[2021-09-23] MEDS: INSULIN LISPRO 100 UNIT/ML SUBCUT SCH ×4 (10:03→21:48)
[2021-09-23] MEDS: INSULIN NPH/REGULAR 70/30 100 UNIT/ML SUBCUT SCH ×2 (10:04→17:53)
[2021-09-23] MEDS: SODIUM CHLORIDE 0.45% 1,000 ML IV SCH (14:53)
[2021-09-24] MEDS: HEPARIN 5,000 UNIT/1 ML VIAL SUBCUT SCH ×3 (00:08→23:29)
[2021-09-24] MEDS: FUROSEMIDE INJ 200 MG in SODIUM CHLORIDE 0.9% 80 ML IV SCH ×3 (00:09→18:19)
[2021-09-24] MEDS: diphenhydrAMINE CAP 25 MG CAPSULE PO PRN ×4 (00:15→23:30)
[2021-09-24 05:48] LABS: Basophils % 0.4 % (0.0-0.8); Eosinophils # 0.2 10*3/uL (0.0-0.87); Hematocrit 28.5 VOL% (42.0-52.0); Hemoglobin 9.3 GM/DL (14.0-18.0); Immature Granulocytes % 0.2 %; Immature Granulocytes Absolute 0.01 #; Lymphocytes # 1.5 10*3/uL (1.4-4.0); Lymphocytes % 32.9 % (21.2-54.2); Mean Corpuscular HGB Conc 32.6 GM/DL (32-36); Monocytes # 0.4 10*3/uL (0.11-0.8); Monocytes % 9.3 % (1.7-12.7); Neutrophils % 53.2 % (38.7-73.9); Platelet Count 239 T/CUMM (130-400); Red Blood Count 3.24 MC/CUMM (3.8-5.5); Red Cell Distribution Width 14.6 % (9.3-17.3); White Blood Count 4.5 T/CUMM (4-12)
[2021-09-24 06:02] LABS: Calcium 8.3 MG/DL (8.5-10.1); Potassium 3.7 MMOL/L (3.5-5.1)
[2021-09-24] MEDS: cloNIDine 0.1 MG TABLET PO SCH ×2 (09:56→21:03)
[2021-09-24] MEDS: amLODIPine 10 MG TABLET PO SCH (09:57)
[2021-09-24] MEDS: carvediloL 6.25 MG TABLET PO SCH (09:57)
[2021-09-24] MEDS: calcitrioL 0.25 MCG CAPSULE PO SCH (09:57)
[2021-09-24] MEDS: TAMSULOSIN 0.4 MG CAPSULE PO SCH ×2 (09:57→21:03)
[2021-09-24] MEDS: INSULIN LISPRO 100 UNIT/ML SUBCUT SCH ×4 (09:59→21:07)
[2021-09-24] MEDS: INSULIN NPH/REGULAR 70/30 100 UNIT/ML SUBCUT SCH ×2 (11:11→17:32)
[2021-09-24] MEDS: SODIUM CHLORIDE 0.45% 1,000 ML IV SCH (13:18)
[2021-09-24] MEDS: carvediloL 12.5 MG TABLET PO SCH (21:03)
[2021-09-25] MEDS: FUROSEMIDE INJ 200 MG in SODIUM CHLORIDE 0.9% 80 ML IV SCH ×2 (03:53→17:18)
[2021-09-25 07:43] LABS: Basophils % 0.6 % (0.0-0.8); Eosinophils # 0.2 10*3/uL (0.0-0.87); Eosinophils % 3.8 % (0.00-10.9); Hematocrit 30.4 VOL% (42.0-52.0); Hemoglobin 9.9 GM/DL (14.0-18.0); Immature Granulocytes % 0.2 %; Immature Granulocytes Absolute 0.01 #; Lymphocytes # 1.9 10*3/uL (1.4-4.0); Lymphocytes % 38.4 % (21.2-54.2); Mean Corpuscular HGB Conc 32.6 GM/DL (32-36); Mean Corpuscular Volume 87.6 FL (87-102); Mean Platelet Volume 9.9 FL (9.6-12.0); Monocytes # 0.5 10*3/uL (0.11-0.8); Platelet Count 255 T/CUMM (130-400); Red Blood Count 3.47 MC/CUMM (3.8-5.5); Red Cell Distribution Width 14.4 % (9.3-17.3)
[2021-09-25 07:58] LABS: Calcium 8.1 MG/DL (8.5-10.1); Potassium 3.4 MMOL/L (3.5-5.1)
[2021-09-25] MEDS: TAMSULOSIN 0.4 MG CAPSULE PO SCH ×2 (09:58→20:38)
[2021-09-25] MEDS: calcitrioL 0.25 MCG CAPSULE PO SCH (09:59)
[2021-09-25] MEDS: amLODIPine 10 MG TABLET PO SCH (09:59)
[2021-09-25] MEDS: carvediloL 12.5 MG TABLET PO SCH ×2 (09:59→20:38)
[2021-09-25] MEDS: cloNIDine 0.1 MG TABLET PO SCH ×2 (09:59→20:38)
[2021-09-25] MEDS: diphenhydrAMINE CAP 25 MG CAPSULE PO PRN ×3 (10:07→23:31)
[2021-09-25] MEDS: INSULIN LISPRO 100 UNIT/ML SUBCUT SCH ×4 (10:13→20:37)
[2021-09-25] MEDS: INSULIN NPH/REGULAR 70/30 100 UNIT/ML SUBCUT SCH ×2 (10:13→17:38)
[2021-09-25] MEDS: HEPARIN 5,000 UNIT/1 ML VIAL SUBCUT SCH (13:20)
[2021-09-25] MEDS: SODIUM CHLORIDE 0.45% 1,000 ML IV SCH (16:37)
[2021-09-26] MEDS: FUROSEMIDE INJ 200 MG in SODIUM CHLORIDE 0.9% 80 ML IV SCH ×2 (05:10→16:12)
[2021-09-26 08:16] LABS: Basophils % 0.3 % (0.0-0.8); Eosinophils # 0.1 10*3/uL (0.0-0.87); Eosinophils % 1.5 % (0.00-10.9); Hematocrit 34.2 VOL% (42.0-52.0); Hemoglobin 11.1 GM/DL (14.0-18.0); Immature Granulocytes % 0.3 %; Immature Granulocytes Absolute 0.02 #; Lymphocytes # 1.4 10*3/uL (1.4-4.0); Lymphocytes % 21.8 % (21.2-54.2); Mean Corpuscular HGB Conc 32.5 GM/DL (32-36); Mean Platelet Volume 10.1 FL (9.6-12.0); Monocytes # 0.4 10*3/uL (0.11-0.8); Monocytes % 5.8 % (1.7-12.7); Neutrophils % 70.3 % (38.7-73.9); Platelet Count 322 T/CUMM (130-400); Red Blood Count 3.93 MC/CUMM (3.8-5.5); Red Cell Distribution Width 14.3 % (9.3-17.3); White Blood Count 6.2 T/CUMM (4-12)
[2021-09-26] MEDS: INSULIN LISPRO 100 UNIT/ML SUBCUT SCH ×4 (08:21→21:59)
[2021-09-26] MEDS: INSULIN NPH/REGULAR 70/30 100 UNIT/ML SUBCUT SCH ×2 (08:21→17:45)
[2021-09-26 08:34] LABS: Calcium 8.5 MG/DL (8.5-10.1); Osmolality,Calculated 291.5 MOS/KG (273-304); Potassium 3.7 MMOL/L (3.5-5.1)
[2021-09-26] MEDS: TAMSULOSIN 0.4 MG CAPSULE PO SCH ×2 (09:11→21:56)
[2021-09-26] MEDS: carvediloL 12.5 MG TABLET PO SCH ×2 (09:11→21:56)
[2021-09-26] MEDS: cloNIDine 0.1 MG TABLET PO SCH ×2 (09:11→21:59)
[2021-09-26] MEDS: amLODIPine 10 MG TABLET PO SCH (09:11)
[2021-09-26] MEDS: calcitrioL 0.25 MCG CAPSULE PO SCH (09:12)
[2021-09-26] MEDS: diphenhydrAMINE CAP 25 MG CAPSULE PO PRN ×2 (09:12→17:52)
[2021-09-26] MEDS: HEPARIN 5,000 UNIT/1 ML VIAL SUBCUT SCH ×2 (09:12→21:57)
[2021-09-26] MEDS: SODIUM CHLORIDE 0.45% 1,000 ML IV SCH (13:41)
[2021-09-27] MEDS: diphenhydrAMINE CAP 25 MG CAPSULE PO PRN ×3 (00:26→16:30)
[2021-09-27] MEDS: FUROSEMIDE INJ 200 MG in SODIUM CHLORIDE 0.9% 80 ML IV SCH ×3 (03:00→22:19)
[2021-09-27 05:31] LABS: Basophils % 0.5 % (0.0-0.8); Eosinophils # 0.1 10*3/uL (0.0-0.87); Eosinophils % 2.4 % (0.00-10.9); Hematocrit 30.8 VOL% (42.0-52.0); Hemoglobin 9.9 GM/DL (14.0-18.0); Immature Granulocytes % 0.3 %; Immature Granulocytes Absolute 0.02 #; Lymphocytes # 1.8 10*3/uL (1.4-4.0); Lymphocytes % 31.5 % (21.2-54.2); Mean Corpuscular HGB Conc 32.1 GM/DL (32-36); Mean Platelet Volume 10.6 FL (9.6-12.0); Monocytes # 0.6 10*3/uL (0.11-0.8); Monocytes % 10.4 % (1.7-12.7); Neutrophils % 54.9 % (38.7-73.9); Platelet Count 295 T/CUMM (130-400); Red Cell Distribution Width 14.4 % (9.3-17.3); White Blood Count 5.8 T/CUMM (4-12)
[2021-09-27 05:48] LABS: Calcium 8.4 MG/DL (8.5-10.1); Osmolality,Calculated 296.5 MOS/KG (273-304); Potassium 3.5 MMOL/L (3.5-5.1)
[2021-09-27] MEDS: TAMSULOSIN 0.4 MG CAPSULE PO SCH ×2 (09:34→21:03)
[2021-09-27] MEDS: carvediloL 12.5 MG TABLET PO SCH (09:34)
[2021-09-27] MEDS: cloNIDine 0.1 MG TABLET PO SCH ×2 (09:34→21:03)
[2021-09-27] MEDS: HEPARIN 5,000 UNIT/1 ML VIAL SUBCUT SCH ×2 (09:34→21:04)
[2021-09-27] MEDS: amLODIPine 10 MG TABLET PO SCH (09:34)
[2021-09-27] MEDS: calcitrioL 0.25 MCG CAPSULE PO SCH (09:34)
[2021-09-27] MEDS: INSULIN LISPRO 100 UNIT/ML SUBCUT SCH ×4 (10:27→22:18)
[2021-09-27] MEDS: INSULIN NPH/REGULAR 70/30 100 UNIT/ML SUBCUT SCH ×2 (10:27→16:19)
[2021-09-27] MEDS: SODIUM CHLORIDE 0.45% 1,000 ML IV SCH (13:54)
[2021-09-27] MEDS: carvediloL 25 MG TABLET PO SCH (21:04)
[2021-09-28] MEDS: diphenhydrAMINE CAP 25 MG CAPSULE PO PRN ×3 (00:32→17:44)
[2021-09-28 05:03] LABS: Basophils % 0.6 % (0.0-0.8); Eosinophils # 0.1 10*3/uL (0.0-0.87); Eosinophils % 2.3 % (0.00-10.9); Hemoglobin 9.6 GM/DL (14.0-18.0); Immature Granulocytes % 0.4 %; Immature Granulocytes Absolute 0.02 #; Lymphocytes # 1.5 10*3/uL (1.4-4.0); Lymphocytes % 31.1 % (21.2-54.2); Mean Corpuscular Volume 88.2 FL (87-102); Mean Platelet Volume 10.4 FL (9.6-12.0); Monocytes # 0.5 10*3/uL (0.11-0.8); Monocytes % 10.9 % (1.7-12.7); Neutrophils % 54.7 % (38.7-73.9); Platelet Count 282 T/CUMM (130-400); White Blood Count 4.7 T/CUMM (4-12)
[2021-09-28 05:21] LABS: Calcium 8.5 MG/DL (8.5-10.1); Osmolality,Calculated 295.4 MOS/KG (273-304); Potassium 3.4 MMOL/L (3.5-5.1)
[2021-09-28] MEDS: FUROSEMIDE INJ 200 MG in SODIUM CHLORIDE 0.9% 80 ML IV SCH ×2 (08:55→19:09)
[2021-09-28] MEDS: amLODIPine 10 MG TABLET PO SCH (08:56)
[2021-09-28] MEDS: carvediloL 25 MG TABLET PO SCH ×2 (08:56→21:20)
[2021-09-28] MEDS: TAMSULOSIN 0.4 MG CAPSULE PO SCH ×2 (08:56→21:20)
[2021-09-28] MEDS: calcitrioL 0.25 MCG CAPSULE PO SCH (08:56)
[2021-09-28] MEDS: cloNIDine 0.1 MG TABLET PO SCH ×2 (08:56→21:20)
[2021-09-28] MEDS: HEPARIN 5,000 UNIT/1 ML VIAL SUBCUT SCH ×2 (09:01→21:20)
[2021-09-28] MEDS: INSULIN NPH/REGULAR 70/30 100 UNIT/ML SUBCUT SCH ×2 (09:05→17:00)
[2021-09-28] MEDS: INSULIN LISPRO 100 UNIT/ML SUBCUT SCH ×4 (09:05→21:48)
[2021-09-28] MEDS: SODIUM CHLORIDE 0.45% 1,000 ML IV SCH (12:01)
[2021-09-29] MEDS: FUROSEMIDE INJ 200 MG in SODIUM CHLORIDE 0.9% 80 ML IV SCH ×2 (04:07→13:38)
[2021-09-29 06:10] LABS: Basophils % 0.6 % (0.0-0.8); Eosinophils # 0.1 10*3/uL (0.0-0.87); Eosinophils % 2.8 % (0.00-10.9); Hematocrit 33.1 VOL% (42.0-52.0); Hemoglobin 10.5 GM/DL (14.0-18.0); Immature Granulocytes % 0.6 %; Immature Granulocytes Absolute 0.03 #; Lymphocytes # 1.7 10*3/uL (1.4-4.0); Lymphocytes % 32.7 % (21.2-54.2); Mean Corpuscular HGB Conc 31.7 GM/DL (32-36); Mean Corpuscular Volume 88.3 FL (87-102); Mean Platelet Volume 10.9 FL (9.6-12.0); Monocytes # 0.6 10*3/uL (0.11-0.8); Monocytes % 12.5 % (1.7-12.7); Neutrophils % 50.8 % (38.7-73.9); Platelet Count 293 T/CUMM (130-400); Red Blood Count 3.75 MC/CUMM (3.8-5.5); Red Cell Distribution Width 13.9 % (9.3-17.3)
[2021-09-29 06:33] LABS: Calcium 8.4 MG/DL (8.5-10.1); Potassium 3.3 MMOL/L (3.5-5.1)
[2021-09-29] MEDS: HEPARIN 5,000 UNIT/1 ML VIAL SUBCUT SCH ×2 (09:30→21:18)
[2021-09-29] MEDS: TAMSULOSIN 0.4 MG CAPSULE PO SCH ×2 (09:30→21:18)
[2021-09-29] MEDS: cloNIDine 0.1 MG TABLET PO SCH ×2 (09:30→21:19)
[2021-09-29] MEDS: carvediloL 25 MG TABLET PO SCH ×2 (09:30→21:19)
[2021-09-29] MEDS: amLODIPine 10 MG TABLET PO SCH (09:30)
[2021-09-29] MEDS: diphenhydrAMINE CAP 25 MG CAPSULE PO PRN ×3 (09:33→23:37)
[2021-09-29] MEDS: INSULIN NPH/REGULAR 70/30 100 UNIT/ML SUBCUT SCH ×2 (10:31→17:00)
[2021-09-29] MEDS: INSULIN LISPRO 100 UNIT/ML SUBCUT SCH ×4 (10:31→22:30)
[2021-09-29] MEDS: calcitrioL 0.25 MCG CAPSULE PO SCH (10:31)
[2021-09-29] MEDS: SODIUM CHLORIDE 0.45% 1,000 ML IV SCH (16:07)
[2021-09-30] MEDS: FUROSEMIDE INJ 200 MG in SODIUM CHLORIDE 0.9% 80 ML IV SCH ×3 (03:00→22:30)
[2021-09-30 05:22] LABS: Basophils % 0.7 % (0.0-0.8); Eosinophils # 0.1 10*3/uL (0.0-0.87); Eosinophils % 2.7 % (0.00-10.9); Hematocrit 30.5 VOL% (42.0-52.0); Hemoglobin 9.7 GM/DL (14.0-18.0); Immature Granulocytes % 0.2 %; Immature Granulocytes Absolute 0.01 #; Lymphocytes # 1.5 10*3/uL (1.4-4.0); Lymphocytes % 35.5 % (21.2-54.2); Mean Corpuscular HGB Conc 31.8 GM/DL (32-36); Mean Corpuscular Volume 88.7 FL (87-102); Mean Platelet Volume 10.3 FL (9.6-12.0); Monocytes # 0.4 10*3/uL (0.11-0.8); Neutrophils % 50.9 % (38.7-73.9); Platelet Count 278 T/CUMM (130-400); Red Blood Count 3.44 MC/CUMM (3.8-5.5); White Blood Count 4.1 T/CUMM (4-12)
[2021-09-30 05:54] LABS: Osmolality,Calculated 302.3 MOS/KG (273-304); Potassium 3.3 MMOL/L (3.5-5.1)
[2021-09-30] MEDS: amLODIPine 10 MG TABLET PO SCH (09:16)
[2021-09-30] MEDS: calcitrioL 0.25 MCG CAPSULE PO SCH (09:16)
[2021-09-30] MEDS: TAMSULOSIN 0.4 MG CAPSULE PO SCH ×2 (09:17→20:38)
[2021-09-30] MEDS: cloNIDine 0.1 MG TABLET PO SCH ×2 (09:17→20:38)
[2021-09-30] MEDS: diphenhydrAMINE CAP 25 MG CAPSULE PO PRN ×3 (09:17→23:38)
[2021-09-30] MEDS: carvediloL 25 MG TABLET PO SCH ×2 (09:18→20:38)
[2021-09-30] MEDS: HEPARIN 5,000 UNIT/1 ML VIAL SUBCUT SCH ×2 (09:18→20:38)
[2021-09-30] MEDS: INSULIN NPH/REGULAR 70/30 100 UNIT/ML SUBCUT SCH ×2 (11:00→16:49)
[2021-09-30] MEDS: INSULIN LISPRO 100 UNIT/ML SUBCUT SCH ×4 (11:00→21:45)
[2021-09-30] MEDS: SODIUM CHLORIDE 0.45% 1,000 ML IV SCH (12:18)
[2021-09-30] MEDS: POTASSIUM CHLORIDE 10 MEQ TABLET PO SCH (20:38)
[2021-10-01] MEDS: INSULIN LISPRO 100 UNIT/ML SUBCUT SCH ×4 (08:55→22:06)
[2021-10-01] MEDS: cloNIDine 0.1 MG TABLET PO SCH ×3 (09:04→22:05)
[2021-10-01] MEDS: carvediloL 25 MG TABLET PO SCH ×2 (09:04→22:05)
[2021-10-01] MEDS: calcitrioL 0.25 MCG CAPSULE PO SCH (09:05)
[2021-10-01] MEDS: POTASSIUM CHLORIDE 10 MEQ TABLET PO SCH (09:05)
[2021-10-01] MEDS: HEPARIN 5,000 UNIT/1 ML VIAL SUBCUT SCH ×2 (09:05→22:06)
[2021-10-01] MEDS: amLODIPine 10 MG TABLET PO SCH (09:05)
[2021-10-01] MEDS: TAMSULOSIN 0.4 MG CAPSULE PO SCH ×2 (09:05→22:05)
[2021-10-01] MEDS: diphenhydrAMINE CAP 25 MG CAPSULE PO PRN (09:08)
[2021-10-01] MEDS: INSULIN NPH/REGULAR 70/30 100 UNIT/ML SUBCUT SCH ×2 (09:49→17:40)
[2021-10-01 09:54] LABS: Calcium 8.3 MG/DL (8.5-10.1); Osmolality,Calculated 299.5 MOS/KG (273-304); Potassium 3.5 MMOL/L (3.5-5.1)
[2021-10-01] MEDS: FUROSEMIDE INJ 200 MG in SODIUM CHLORIDE 0.9% 80 ML IV SCH (11:15)
[2021-10-01] MEDS: ACETAMINOPHEN 325 MG TABLET PO PRN ×2 (12:14→17:48)
[2021-10-01] MEDS: SODIUM CHLORIDE 0.45% 1,000 ML IV SCH (15:12)
[2021-10-01] MEDS: hydrALAZINE 20 MG/1 ML VIAL IV PRN (17:55)
[2021-10-01 18:57] LABS: Basophils % 0.2 % (0.0-0.8); Eosinophils % 0.1 % (0.00-10.9); Hematocrit 33.9 VOL% (42.0-52.0); Hemoglobin 10.8 GM/DL (14.0-18.0); Immature Granulocytes % 0.6 %; Immature Granulocytes Absolute 0.05 #; Lymphocytes # 0.6 10*3/uL (1.4-4.0); Lymphocytes % 6.4 % (21.2-54.2); Mean Corpuscular HGB Conc 31.9 GM/DL (32-36); Mean Corpuscular Volume 88.7 FL (87-102); Monocytes # 0.8 10*3/uL (0.11-0.8); Monocytes % 9.6 % (1.7-12.7); Neutrophils % 83.1 % (38.7-73.9); Platelet Count 276 T/CUMM (130-400); Red Blood Count 3.82 MC/CUMM (3.8-5.5); Red Cell Distribution Width 13.8 % (9.3-17.3); White Blood Count 8.7 T/CUMM (4-12)
[2021-10-01 19:22] LABS: Alanine Aminotransferase 26 U/L (16-61); Alkaline Phosphatase 56 U/L (45-117); Aspartate Amino Transferase 20 U/L (0-37); Bilirubin,Total < 0.39 MG/DL (0.20-1.00); Blood Urea Nitrogen 56 MG/DL (7-18); Calcium 8.8 MG/DL (8.5-10.1); Carbon Dioxide 28 MMOL/L (21-32); Chloride 105 MMOL/L (98-107); Estimated Glom Filtration Rate 21 ML/MIN; Glucose 102 MG/DL (74-106); Osmolality,Calculated 294.4 MOS/KG (273-304); Potassium 3.3 MMOL/L (3.5-5.1); Sodium 140 MMOL/L (136-145); Total Protein 6.4 G/DL (6.4-8.2)
[2021-10-01 20:05] LABS: Sedimentation Rate-Westergren 101 MM/HR (0-20)
[2021-10-02] MEDS: FUROSEMIDE INJ 200 MG in SODIUM CHLORIDE 0.9% 80 ML IV SCH ×2 (08:53→08:54)
[2021-10-02] MEDS: INSULIN LISPRO 100 UNIT/ML SUBCUT SCH ×4 (08:55→23:21)
[2021-10-02] MEDS: calcitrioL 0.25 MCG CAPSULE PO SCH (09:06)
[2021-10-02] MEDS: carvediloL 25 MG TABLET PO SCH ×2 (09:06→21:27)
[2021-10-02] MEDS: cloNIDine 0.1 MG TABLET PO SCH ×3 (09:06→21:28)
[2021-10-02] MEDS: amLODIPine 10 MG TABLET PO SCH (09:07)
[2021-10-02] MEDS: TAMSULOSIN 0.4 MG CAPSULE PO SCH ×2 (09:07→21:27)
[2021-10-02 09:11] LABS: Basophils % 0.3 % (0.0-0.8); Hematocrit 33.2 VOL% (42.0-52.0); Hemoglobin 10.6 GM/DL (14.0-18.0); Immature Granulocytes % 0.3 %; Immature Granulocytes Absolute 0.03 #; Lymphocytes # 1.6 10*3/uL (1.4-4.0); Lymphocytes % 16.5 % (21.2-54.2); Mean Corpuscular HGB Conc 31.9 GM/DL (32-36); Mean Corpuscular Volume 88.3 FL (87-102); Mean Platelet Volume 11.2 FL (9.6-12.0); Monocytes # 0.9 10*3/uL (0.11-0.8); Monocytes % 9.2 % (1.7-12.7); Neutrophils % 73.7 % (38.7-73.9); Platelet Count 258 T/CUMM (130-400); Red Blood Count 3.76 MC/CUMM (3.8-5.5); Red Cell Distribution Width 13.8 % (9.3-17.3); White Blood Count 9.5 T/CUMM (4-12)
[2021-10-02] MEDS: HEPARIN 5,000 UNIT/1 ML VIAL SUBCUT SCH ×2 (09:19→21:28)
[2021-10-02] MEDS: INSULIN NPH/REGULAR 70/30 100 UNIT/ML SUBCUT SCH ×2 (09:19→16:44)
[2021-10-02 09:40] LABS: Alanine Aminotransferase 27 U/L (16-61); Alkaline Phosphatase 54 U/L (45-117); Aspartate Amino Transferase 29 U/L (0-37); Bilirubin,Total < 0.39 MG/DL (0.20-1.00); Blood Urea Nitrogen 59 MG/DL (7-18); Calcium 8.5 MG/DL (8.5-10.1); Carbon Dioxide 30 MMOL/L (21-32); Chloride 103 MMOL/L (98-107); Estimated Glom Filtration Rate 20 ML/MIN; Glucose 149 MG/DL (74-106); Osmolality,Calculated 300.3 MOS/KG (273-304); Potassium 3.5 MMOL/L (3.5-5.1); Sodium 141 MMOL/L (136-145); Total Protein 6.4 G/DL (6.4-8.2)
[2021-10-02] MEDS: PIPERACILLIN/TAZOBACTAM 3,375 MG in SODIUM CHLORIDE 0.9% 100 ML IV SCH ×2 (11:09→21:28)
[2021-10-02 11:26] LABS: Glucose,CSF 81 MG/DL (40-70)
[2021-10-02 11:32] LABS: Lymphocytes,CSF 92 %; Monocytes,CSF 8 %
[2021-10-02 11:33] LABS: Appearance,CSF Clear; Red Blood Cell,CSF < 1 C/CUMM; White Blood Cell,CSF 9 C/CUMM
[2021-10-02 11:46] LABS: Amorphous Crystals,Urine Occasional /HPF (Few); Bacteria,Urine Occasional /HPF (Few); Bilirubin,Urine Negative (Negative); Blood, Urine Negative (Negative); Glucose,Urine (UA) 100 mg/dL (Negative); Hyaline Casts,Urine 7 /LPF (0-3); Ketones,Urine Negative (Negative); Mucus,Urine Occasional /LPF (Occasional); Nitrite,Urine Negative (Negative); Protein,Urine >=300 mg/dL (Negative); RBC,Urine 13 /HPF (0-4); Squamous Epithelial Cell,Urine Occasional /HPF (0-10); Urine Appearance Clear (Clear); Urine Color Yellow (Yellow); Urine Specific Gravity 1.025 (1.001-1.035); Urine Urobilinogen 0.2 eU/dL (<2.0)
[2021-10-02] MEDS: diphenhydrAMINE CAP 25 MG CAPSULE PO PRN ×2 (15:43→21:27)
[2021-10-02] MEDS: SODIUM CHLORIDE 0.45% 1,000 ML IV SCH (15:44)
[2021-10-03 07:12] LABS: Basophils % 0.5 % (0.0-0.8); Hematocrit 30.8 VOL% (42.0-52.0); Immature Granulocytes % 0.4 %; Immature Granulocytes Absolute 0.03 #; Lymphocytes # 1.2 10*3/uL (1.4-4.0); Lymphocytes % 15.6 % (21.2-54.2); Mean Corpuscular HGB Conc 32.5 GM/DL (32-36); Mean Corpuscular Volume 87.3 FL (87-102); Mean Platelet Volume 10.5 FL (9.6-12.0); Monocytes # 0.9 10*3/uL (0.11-0.8); Neutrophils % 72.5 % (38.7-73.9); Platelet Count 239 T/CUMM (130-400); Red Blood Count 3.53 MC/CUMM (3.8-5.5)
[2021-10-03 07:32] LABS: Alanine Aminotransferase 25 U/L (16-61); Albumin 1.8 G/DL (3.4-5.0); Alkaline Phosphatase 47 U/L (45-117); Aspartate Amino Transferase 29 U/L (0-37); Bilirubin,Total < 0.39 MG/DL (0.20-1.00); Blood Urea Nitrogen 71 MG/DL (7-18); Calcium 8.6 MG/DL (8.5-10.1); Carbon Dioxide 29 MMOL/L (21-32); Chloride 100 MMOL/L (98-107); Estimated Glom Filtration Rate 17 ML/MIN; Glucose 210 MG/DL (74-106); Osmolality,Calculated 301.7 MOS/KG (273-304); Potassium 3.7 MMOL/L (3.5-5.1); Sodium 138 MMOL/L (136-145); Total Protein 6.3 G/DL (6.4-8.2)
[2021-10-03] MEDS: TAMSULOSIN 0.4 MG CAPSULE PO SCH ×2 (09:05→21:19)
[2021-10-03] MEDS: calcitrioL 0.25 MCG CAPSULE PO SCH (09:05)
[2021-10-03] MEDS: carvediloL 25 MG TABLET PO SCH ×2 (09:05→21:20)
[2021-10-03] MEDS: INSULIN LISPRO 100 UNIT/ML SUBCUT SCH ×4 (09:06→21:20)
[2021-10-03] MEDS: HEPARIN 5,000 UNIT/1 ML VIAL SUBCUT SCH ×2 (09:06→21:20)
[2021-10-03] MEDS: cloNIDine 0.1 MG TABLET PO SCH ×3 (09:06→21:20)
[2021-10-03] MEDS: INSULIN NPH/REGULAR 70/30 100 UNIT/ML SUBCUT SCH ×2 (09:06→17:10)
[2021-10-03] MEDS: diphenhydrAMINE CAP 25 MG CAPSULE PO PRN ×2 (09:06→16:53)
[2021-10-03] MEDS: amLODIPine 10 MG TABLET PO SCH (09:06)
[2021-10-03] MEDS: PIPERACILLIN/TAZOBACTAM 3,375 MG in SODIUM CHLORIDE 0.9% 100 ML IV SCH ×2 (11:19→21:24)
[2021-10-03] MEDS: SODIUM CHLORIDE 0.45% 1,000 ML IV SCH (19:20)
[2021-10-04] MEDS: diphenhydrAMINE CAP 25 MG CAPSULE PO PRN ×3 (00:37→16:23)
[2021-10-04 05:59] LABS: Basophils % 0.2 % (0.0-0.8); Eosinophils # 0.1 10*3/uL (0.0-0.87); Eosinophils % 1.3 % (0.00-10.9); Hematocrit 29.3 VOL% (42.0-52.0); Hemoglobin 9.3 GM/DL (14.0-18.0); Immature Granulocytes % 0.5 %; Immature Granulocytes Absolute 0.03 #; Lymphocytes # 1.3 10*3/uL (1.4-4.0); Lymphocytes % 22.8 % (21.2-54.2); Mean Corpuscular HGB Conc 31.7 GM/DL (32-36); Mean Corpuscular Volume 87.7 FL (87-102); Mean Platelet Volume 11.4 FL (9.6-12.0); Monocytes # 0.7 10*3/uL (0.11-0.8); Monocytes % 12.2 % (1.7-12.7); Platelet Count 224 T/CUMM (130-400); Red Blood Count 3.34 MC/CUMM (3.8-5.5); Red Cell Distribution Width 13.7 % (9.3-17.3); White Blood Count 5.6 T/CUMM (4-12)
[2021-10-04 06:21] LABS: Calcium 8.5 MG/DL (8.5-10.1); Potassium 3.2 MMOL/L (3.5-5.1)
[2021-10-04] MEDS: TAMSULOSIN 0.4 MG CAPSULE PO SCH ×2 (10:04→23:00)
[2021-10-04] MEDS: cloNIDine 0.1 MG TABLET PO SCH ×3 (10:04→23:03)
[2021-10-04] MEDS: carvediloL 25 MG TABLET PO SCH ×2 (10:04→23:03)
[2021-10-04] MEDS: calcitrioL 0.25 MCG CAPSULE PO SCH (10:05)
[2021-10-04] MEDS: amLODIPine 10 MG TABLET PO SCH (10:05)
[2021-10-04] MEDS: HEPARIN 5,000 UNIT/1 ML VIAL SUBCUT SCH ×2 (10:06→23:03)
[2021-10-04] MEDS: PIPERACILLIN/TAZOBACTAM 3,375 MG in SODIUM CHLORIDE 0.9% 100 ML IV SCH ×2 (10:06→22:59)
[2021-10-04] MEDS: INSULIN NPH/REGULAR 70/30 100 UNIT/ML SUBCUT SCH ×2 (10:19→17:42)
[2021-10-04] MEDS: INSULIN LISPRO 100 UNIT/ML SUBCUT SCH ×4 (10:19→23:04)
[2021-10-04] MEDS: SODIUM CHLORIDE 0.9% 1,000 ML IV SCH (16:25)
[2021-10-04] MEDS: SODIUM CHLORIDE 0.45% 1,000 ML IV SCH (18:02)
[2021-10-04] MEDS: POTASSIUM CHLORIDE 10 MEQ TABLET PO SCH (23:05)
[2021-10-05] MEDS: diphenhydrAMINE CAP 25 MG CAPSULE PO PRN ×3 (00:23→17:10)
[2021-10-05 08:07] LABS: Osmolality,Calculated 308.7 MOS/KG (273-304); Potassium 3.3 MMOL/L (3.5-5.1)
[2021-10-05] MEDS: TAMSULOSIN 0.4 MG CAPSULE PO SCH ×2 (10:16→21:32)
[2021-10-05] MEDS: calcitrioL 0.25 MCG CAPSULE PO SCH (10:16)
[2021-10-05] MEDS: cloNIDine 0.1 MG TABLET PO SCH ×3 (10:16→21:32)
[2021-10-05] MEDS: carvediloL 25 MG TABLET PO SCH ×2 (10:17→22:15)
[2021-10-05] MEDS: POTASSIUM CHLORIDE 10 MEQ TABLET PO SCH ×2 (10:17→21:32)
[2021-10-05] MEDS: INSULIN LISPRO 100 UNIT/ML SUBCUT SCH ×4 (10:56→21:33)
[2021-10-05] MEDS: HEPARIN 5,000 UNIT/1 ML VIAL SUBCUT SCH (10:57)
[2021-10-05] MEDS: PIPERACILLIN/TAZOBACTAM 3,375 MG in SODIUM CHLORIDE 0.9% 100 ML IV SCH (10:59)
[2021-10-05] MEDS: INSULIN NPH/REGULAR 70/30 100 UNIT/ML SUBCUT SCH ×2 (11:25→17:15)
[2021-10-05] MEDS: HEPARIN DRIP 25,000 UNITS/500 ML PREMIX IV SCH (15:08)
[2021-10-05] MEDS: SODIUM CHLORIDE 0.9% 1,000 ML IV SCH (17:32)
[2021-10-06] MEDS: PIPERACILLIN/TAZOBACTAM 3,375 MG in SODIUM CHLORIDE 0.9% 100 ML IV SCH ×3 (00:01→21:08)
[2021-10-06 04:14] LABS: Basophils % 0.5 % (0.0-0.8); Eosinophils # 0.1 10*3/uL (0.0-0.87); Eosinophils % 2.1 % (0.00-10.9); Hematocrit 29.3 VOL% (42.0-52.0); Hemoglobin 9.5 GM/DL (14.0-18.0); Immature Granulocytes % 0.2 %; Immature Granulocytes Absolute 0.01 #; Lymphocytes # 1.4 10*3/uL (1.4-4.0); Lymphocytes % 24.8 % (21.2-54.2); Mean Corpuscular HGB Conc 32.4 GM/DL (32-36); Mean Corpuscular Volume 86.9 FL (87-102); Mean Platelet Volume 10.5 FL (9.6-12.0); Monocytes # 0.5 10*3/uL (0.11-0.8); Monocytes % 9.1 % (1.7-12.7); Neutrophils % 63.3 % (38.7-73.9); Platelet Count 263 T/CUMM (130-400); Red Blood Count 3.37 MC/CUMM (3.8-5.5); Red Cell Distribution Width 13.4 % (9.3-17.3); White Blood Count 5.8 T/CUMM (4-12)
[2021-10-06 04:26] LABS: Calcium 8.4 MG/DL (8.5-10.1); Osmolality,Calculated 305.5 MOS/KG (273-304); Potassium 3.3 MMOL/L (3.5-5.1)
[2021-10-06] MEDS: calcitrioL 0.25 MCG CAPSULE PO SCH (08:10)
[2021-10-06] MEDS: cloNIDine 0.1 MG TABLET PO SCH ×3 (08:10→21:02)
[2021-10-06] MEDS: carvediloL 25 MG TABLET PO SCH ×2 (08:10→21:03)
[2021-10-06] MEDS: POTASSIUM CHLORIDE 10 MEQ TABLET PO SCH ×2 (08:10→21:02)
[2021-10-06] MEDS: TAMSULOSIN 0.4 MG CAPSULE PO SCH ×2 (08:10→21:03)
[2021-10-06] MEDS: INSULIN NPH/REGULAR 70/30 100 UNIT/ML SUBCUT SCH ×2 (08:40→18:25)
[2021-10-06] MEDS: diphenhydrAMINE CAP 25 MG CAPSULE PO PRN ×4 (09:58→21:03)
[2021-10-06] MEDS: INSULIN LISPRO 100 UNIT/ML SUBCUT SCH ×4 (09:59→21:08)
[2021-10-06] MEDS ORDERED: VANCOMYCIN INJ 1,250 MG in SODIUM CHLORIDE 0.9% 250 ML IV PRN (12:23)
[2021-10-06] MEDS ORDERED: VANCOMYCIN INJ 1,250 MG in SODIUM CHLORIDE 0.9% 250 ML IV ONE (13:00)
[2021-10-06] MEDS: HEPARIN DRIP 25,000 UNITS/500 ML PREMIX IV SCH (13:44)
[2021-10-06] MEDS: GABAPENTIN 300 MG CAPSULE PO SCH (21:03)
[2021-10-07] MEDS: HEPARIN DRIP 25,000 UNITS/500 ML PREMIX IV SCH ×2 (03:52→22:30)
[2021-10-07 04:34] LABS: Basophils % 0.3 % (0.0-0.8); Eosinophils # 0.2 10*3/uL (0.0-0.87); Eosinophils % 3.4 % (0.00-10.9); Hematocrit 30.8 VOL% (42.0-52.0); Hemoglobin 9.9 GM/DL (14.0-18.0); Immature Granulocytes % 0.3 %; Immature Granulocytes Absolute 0.02 #; Lymphocytes # 1.5 10*3/uL (1.4-4.0); Lymphocytes % 23.6 % (21.2-54.2); Mean Corpuscular HGB Conc 32.1 GM/DL (32-36); Mean Corpuscular Volume 87.3 FL (87-102); Mean Platelet Volume 10.6 FL (9.6-12.0); Monocytes # 0.5 10*3/uL (0.11-0.8); Neutrophils % 64.4 % (38.7-73.9); Platelet Count 302 T/CUMM (130-400); Red Blood Count 3.53 MC/CUMM (3.8-5.5); Red Cell Distribution Width 13.5 % (9.3-17.3); White Blood Count 6.5 T/CUMM (4-12)
[2021-10-07 04:43] LABS: INR 0.9; PT Patient Result 10.3 SECS (10.5-12.0)
[2021-10-07 05:12] LABS: Calcium 8.3 MG/DL (8.5-10.1); Osmolality,Calculated 300.3 MOS/KG (273-304); Potassium 3.5 MMOL/L (3.5-5.1)
[2021-10-07] MEDS: calcitrioL 0.25 MCG CAPSULE PO SCH (08:50)
[2021-10-07] MEDS: POTASSIUM CHLORIDE 10 MEQ TABLET PO SCH ×2 (08:50→21:16)
[2021-10-07] MEDS: TAMSULOSIN 0.4 MG CAPSULE PO SCH ×2 (08:50→21:16)
[2021-10-07] MEDS: cloNIDine 0.1 MG TABLET PO SCH ×3 (08:50→21:16)
[2021-10-07] MEDS: carvediloL 25 MG TABLET PO SCH ×2 (08:50→21:16)
[2021-10-07] MEDS: INSULIN LISPRO 100 UNIT/ML SUBCUT SCH ×4 (08:51→21:17)
[2021-10-07] MEDS: INSULIN NPH/REGULAR 70/30 100 UNIT/ML SUBCUT SCH ×2 (08:51→16:13)
[2021-10-07] MEDS: diphenhydrAMINE CAP 25 MG CAPSULE PO PRN ×3 (08:54→21:19)
[2021-10-07] MEDS: PIPERACILLIN/TAZOBACTAM 3,375 MG in SODIUM CHLORIDE 0.9% 100 ML IV SCH ×2 (10:25→21:14)
[2021-10-07] MEDS ORDERED: MORPHINE 2 MG/1 ML SYRINGE IV PRN (11:26)
[2021-10-07] MEDS ORDERED: WARFARIN 5 MG TABLET PO SCH (18:00)
[2021-10-07] MEDS: GABAPENTIN 300 MG CAPSULE PO SCH (21:16)
[2021-10-08] MEDS: diphenhydrAMINE CAP 25 MG CAPSULE PO PRN ×2 (03:51→09:44)
[2021-10-08 05:02] LABS: Basophils % 0.4 % (0.0-0.8); Eosinophils # 0.2 10*3/uL (0.0-0.87); Eosinophils % 3.5 % (0.00-10.9); Hematocrit 28.1 VOL% (42.0-52.0); Immature Granulocytes % 0.5 %; Immature Granulocytes Absolute 0.03 #; Lymphocytes # 1.5 10*3/uL (1.4-4.0); Lymphocytes % 26.4 % (21.2-54.2); Mean Corpuscular Volume 87.8 FL (87-102); Mean Platelet Volume 10.6 FL (9.6-12.0); Monocytes # 0.4 10*3/uL (0.11-0.8); Neutrophils % 62.2 % (38.7-73.9); Platelet Count 309 T/CUMM (130-400); Red Cell Distribution Width 13.7 % (9.3-17.3); White Blood Count 5.7 T/CUMM (4-12)
[2021-10-08 05:18] LABS: Calcium 8.6 MG/DL (8.5-10.1); Osmolality,Calculated 296.4 MOS/KG (273-304); Potassium 3.8 MMOL/L (3.5-5.1)
[2021-10-08 05:20] LABS: INR 0.9; PT Patient Result 10.3 SECS (10.5-12.0)
[2021-10-08] MEDS: PIPERACILLIN/TAZOBACTAM 3,375 MG in SODIUM CHLORIDE 0.9% 100 ML IV SCH (09:42)
[2021-10-08] MEDS: INSULIN NPH/REGULAR 70/30 100 UNIT/ML SUBCUT SCH (09:43)
[2021-10-08] MEDS: INSULIN LISPRO 100 UNIT/ML SUBCUT SCH ×2 (09:43→12:35)
[2021-10-08] MEDS: TAMSULOSIN 0.4 MG CAPSULE PO SCH (09:44)
[2021-10-08] MEDS: calcitrioL 0.25 MCG CAPSULE PO SCH (09:44)
[2021-10-08] MEDS: cloNIDine 0.1 MG TABLET PO SCH (09:44)
[2021-10-08] MEDS: carvediloL 25 MG TABLET PO SCH (09:45)
[2021-10-08] MEDS: POTASSIUM CHLORIDE 10 MEQ TABLET PO SCH (09:45)
[2021-10-08] MEDS ORDERED: VANCOMYCIN INJ 1,250 MG in SODIUM CHLORIDE 0.9% 250 ML IV SCH (11:00)
[2021-10-08] MEDS ORDERED: predniSONE 20 MG TABLET PO SCH (11:00)
[2021-10-08 12:51] VITALS: BP 136/59
== END 2021-10-08 16:34 | DRG 698 ==
LOC: N.EDINP 13:01 → N.ED 13:01 → N.TELES 13:01 → N.EDINP 09-16 03:26 → SUATTDRO 09-17 13:30
PROVIDERS: ADMIT Hospitalist; ATTEND Internal Medicine